=== PATIENT | female | born 1940 | race Caucasian/White ===

== ENCOUNTER → 2017-12-24 | Outpatient (CLI) | payer OTHER ==
[~2017-12-24] MED LIST: ACET325 PO; ASPI81CH PO; ATOR10 PO; ATOR20 PO; Aspir 8181 MG PO; BREO ELLIPTA 11 EACH IH; CALCA500CH PO; CARV6.25 PO; CATALYN; CEPH500 PO; CHOL10002 PO; CIPRO500 MG PO; CITA20 PO; CLOP75 PO; CRANBERRY 6,001 EACH PO; CYCL10 PO; DOCU100 PO; DULO60 PO; FLUO20 PO; FLUSAL1005 INH; FLUSAL2505 INH; FURO20 PO; GABA300 PO; GABA600 PO; HYDACE5 PO; HYDACE7.5 PO; IBUP600 PO; Isosorbide Mono30 MG PO; LEVFLO500 PO; LOSA25 PO; Lisinopril2.5 MG PO; Lopressor 25 mg25 MG PO; METO25ER PO; MILN100T PO; MULVITMIND PO; NAPR500 PO; NITR.4SL SL; Nitrostat0.4 MG SL; OMEP40CA12 PO; PANT40 PO; POTA10T PO; PRAV20 PO; PRED5 PO; RABE20 PO; ROSU5 PO; RXCYCL10 PO; SIMV10 PO; SPIR25 PO; SULTRIDS PO; Senna8.6 MG PO; TIOT18 INH; TRIHYD253A PO; TRIHYD253B PO
[2017-12-24 19:35] LABS: Appearance, Urine Clear (Clear); Bilirubin, Urine Neg (Neg); Blood, Urine 2+ (Neg); Color, Urine Yellow (P-Yellow); Glucose Qualitative, Urine Neg (Neg); Ketones, Urine Neg (Neg); Leukocyte Esterase, Urine 3+ (Neg); Nitrite, Urine Neg (Neg); Protein, Urine Neg (Neg); Urobilinogen, Urine NORM (Normal)
[2017-12-24 19:43] LABS: Bacteria Few /hpf; Squamous Epithelial Cells Not Seen /hpf (Few); White Blood Cells, Urine TNTC /hpf (0-5)
== END ==
LOC: OLS 10:17
PROVIDERS: Nurse Practitioner
DX: Z09 Encounter for follow-up examination after completed treatment for conditions other than malignant neoplasm (principal); Z87.448 Personal history of other diseases of urinary system
CPT/HCPCS: 81001; 87077; 87086; 87186

== ENCOUNTER 2018-11-09 08:23 | Day surgery (SDC) | payer OTHER ==
[~2018-11-09] VITALS: Ht 162.6 cm; Wt 78.0 kg
[2018-11-09 08:42] LABS: BASOPHILS ABSOLUTE AUTO 0.03 K/mm3 (0.00-0.23); BASOPHILS PERCENT AUTO 1 % (0-2); EOSINOPHILS ABSOLUTE AUTO 0.27 K/mm3 (0.00-0.68); EOSINOPHILS PERCENT AUTO 5 % (0-6); Hematocrit 36.4 % (33.0-51.0); Hemoglobin 12.2 g/dL (11.5-16.0); IMMATURE GRAN PERCENT AUTO 0 % (0-1); LYMPHOCYTES ABSOLUTE AUTO 1.97 K/mm3 (0.84-5.20); LYMPHOCYTES PERCENT AUTO 35 % (21-46); MONOCYTES ABSOLUTE AUTO 0.67 K/mm3 (0.16-1.47); MONOCYTES PERCENT AUTO 12 % (4-13); Mean Corpuscular HGB 32.1 pg (26.0-34.0); Mean Corpuscular HGB Conc 33.5 g/dL (31.5-36.5); Mean Platelet Volume 8.7 fL (9.1-12.4); NEUTROPHILS ABSOLUTE AUTO 2.77 K/mm3 (1.96-9.15); NEUTROPHILS PERCENT AUTO 49 % (41-73); Platelet Count 384 K/mm3 (150-400); RDW Coefficient Variation 12.4 % (11.7-14.2); RDW Standard Deviation 43.3 fL (35.1-46.3); White Blood Cell Count 5.71 K/mm3 (4.00-11.30)
[2018-11-09 08:47] LABS: Mean Corpuscular Volume 96 fL (80-100)
[2018-11-09 08:56] LABS: Bun/Creatinine Ratio 16.9 (12.0-20.0); Calcium, Blood 9.1 mg/dL (8.5-10.1); Creatinine, Blood 1.18 mg/dL (0.40-1.00); International Normalized Ratio 0.97; Potassium, Blood 4.4 mmol/L (3.5-5.5)
== END 2018-11-10 10:58 | disposition home or self-care (01) ==
LOC: MHTC 08:23 → PCU 08:23 → MHTC 08:24 → PCU 14:48 → MHTC 11-10 10:58
PROVIDERS: Internal Medicine Cardiovascular Disease
PROC: 027034Z Dilation of Coronary Artery, One Artery with Drug-eluting Intraluminal Device, Percutaneous Approach (ICD-10-PCS; principal; 2018-11-09)
PROC: B2111ZZ Fluoroscopy of Multiple Coronary Arteries using Low Osmolar Contrast (ICD-10-PCS; principal; 2018-11-09)
DX: I25.10 Atherosclerotic heart disease of native coronary artery without angina pectoris (principal); Z95.1 Presence of aortocoronary bypass graft; E78.5 Hyperlipidemia, unspecified; I25.5 Ischemic cardiomyopathy; I11.0 Hypertensive heart disease with heart failure; I50.9 Heart failure, unspecified
CPT/HCPCS: 36415; 80048; 85025; 85347; 85610; 93452; 99152; 99153; C1725; C1769; C1874; C1887; C1894; C9600; J1644; J2250; J3010; J7030; Q9967

== ENCOUNTER → 2019-01-31 | Outpatient (CLI) | payer OTHER | END | disposition home or self-care (01) | LOC: LAB EV 12:00 → LAB SHORT 12:00 | DX: R35.0 Frequency of micturition (principal) | CPT/HCPCS: 87077; 87086; 87186 ==

== ENCOUNTER 2019-02-11 13:07 | Emergency (ER) | payer OTHER ==
[~2019-02-11] VITALS: Ht 162.6 cm; Wt 80.3 kg
[2019-02-11 13:41] LABS: BASOPHILS ABSOLUTE AUTO 0.08 K/mm3 (0.00-0.23); BASOPHILS PERCENT AUTO 1 % (0-2); EOSINOPHILS ABSOLUTE AUTO 0.53 K/mm3 (0.00-0.68); EOSINOPHILS PERCENT AUTO 5 % (0-6); Hematocrit 37.5 % (33.0-51.0); Hemoglobin 12.6 g/dL (11.5-16.0); IMMATURE GRAN ABSOLUTE AUTO 0.04 K/mm3 (0.00-0.10); IMMATURE GRAN PERCENT AUTO 0 % (0-1); LYMPHOCYTES ABSOLUTE AUTO 3.08 K/mm3 (0.84-5.20); LYMPHOCYTES PERCENT AUTO 28 % (21-46); MONOCYTES ABSOLUTE AUTO 1.22 K/mm3 (0.16-1.47); MONOCYTES PERCENT AUTO 11 % (4-13); Mean Corpuscular HGB 33.2 pg (26.0-34.0); Mean Corpuscular HGB Conc 33.6 g/dL (31.5-36.5); Mean Corpuscular Volume 99 fL (80-100); Mean Platelet Volume 8.8 fL (9.1-12.4); NEUTROPHILS ABSOLUTE AUTO 6.01 K/mm3 (1.96-9.15); NEUTROPHILS PERCENT AUTO 55 % (41-73); Platelet Count 408 K/mm3 (150-400); RDW Coefficient Variation 12.8 % (11.7-14.2); RDW Standard Deviation 46.2 fL (35.1-46.3); White Blood Cell Count 10.96 K/mm3 (4.00-11.30)
[2019-02-11 14:09] LABS: Alanine Aminotransfer (ALT/SGP 27 U/L (12-78); Albumin, Blood 3.8 g/dL (3.4-5.0); Albumin/Globulin Ratio 0.9 (0.8-1.8); Alk Phos 84 U/L (50-136); Anion Gap 9 mmol/L (6-16); Aspartate Aminotrans (AST/SGOT 25 U/L (12-37); Bilirubin, Total 0.4 mg/dL (0.1-1.0); Blood Urea Nitrogen 31 mg/dL (8-24); CO2, Blood 24 mmol/L (21-32); Calcium, Blood 9.4 mg/dL (8.5-10.1); Chloride, Blood 101 mmol/L (98-108); Creatinine, Blood 1.35 mg/dL (0.40-1.00); Globulin, Blood 4.1 g/dL (2.2-4.0); Glomerular Filtration Rate 40 (60-); Glucose, Blood 97 mg/dL (70-99); Potassium, Blood 4.4 mmol/L (3.5-5.5); Sodium, Blood 134 mmol/L (136-145); Total Protein, Blood 7.9 g/dL (6.4-8.2); Troponin I <0.015 ng/mL (0.000-0.040)
[2019-02-11] MEDS ORDERED: PRED20 PO (14:31)
[2019-02-11] MEDS ORDERED: ALBU90OI INH (14:32)
[2019-02-11 14:42] LABS: Influenza A Negative (NEGATIVE); Influenza B Negative (NEGATIVE)
== END 2019-02-11 15:08 | disposition home or self-care (01) ==
LOC: ER 13:07
PROVIDERS: Emergency Medicine
DX: R06.00 Dyspnea, unspecified (principal); Z88.2 Allergy status to sulfonamides; Z88.5 Allergy status to narcotic agent; Z88.8 Allergy status to other drugs, medicaments and biological substances; Z79.899 Other long term (current) drug therapy; Z79.82 Long term (current) use of aspirin; E78.00 Pure hypercholesterolemia, unspecified; I10 Essential (primary) hypertension; I25.2 Old myocardial infarction
CPT/HCPCS: 71046; 80053; 83880; 84484; 85025; 87804; 93005; 93010; 94640; 96374; 99285-25; J2930

== ENCOUNTER 2019-03-04 02:34 | Inpatient (IN) | payer OTHER ==
[~2019-03-04] VITALS: Ht 162.6 cm; Wt 73.1 kg
[~2019-03-04 02:34] MED LIST changes: +ALBU90OI INH; +PRED20 PO; +Vibramycin100 MG PO
[2019-03-04 03:14] LABS: BASOPHILS ABSOLUTE AUTO 0.08 K/mm3 (0.00-0.23); BASOPHILS PERCENT AUTO 1 % (0-2); EOSINOPHILS ABSOLUTE AUTO 0.73 K/mm3 (0.00-0.68); EOSINOPHILS PERCENT AUTO 9 % (0-6); Hematocrit 37.9 % (33.0-51.0); Hemoglobin 12.3 g/dL (11.5-16.0); IMMATURE GRAN ABSOLUTE AUTO 0.02 K/mm3 (0.00-0.10); IMMATURE GRAN PERCENT AUTO 0 % (0-1); LYMPHOCYTES ABSOLUTE AUTO 3.08 K/mm3 (0.84-5.20); LYMPHOCYTES PERCENT AUTO 36 % (21-46); MONOCYTES ABSOLUTE AUTO 0.98 K/mm3 (0.16-1.47); MONOCYTES PERCENT AUTO 12 % (4-13); Mean Corpuscular HGB 31.9 pg (26.0-34.0); Mean Corpuscular HGB Conc 32.5 g/dL (31.5-36.5); Mean Corpuscular Volume 98 fL (80-100); Mean Platelet Volume 8.5 fL (9.1-12.4); NEUTROPHILS ABSOLUTE AUTO 3.58 K/mm3 (1.96-9.15); NEUTROPHILS PERCENT AUTO 42 % (41-73); Platelet Count 343 K/mm3 (150-400); RDW Coefficient Variation 12.7 % (11.7-14.2); RDW Standard Deviation 45.8 fL (35.1-46.3); Red Blood Cell Count 3.85 M/mm3 (3.80-5.20); White Blood Cell Count 8.47 K/mm3 (4.00-11.30)
[2019-03-04 03:35] LABS: Albumin, Blood 3.2 g/dL (3.4-5.0); Albumin/Globulin Ratio 0.8 (0.8-1.8); Bilirubin, Total 0.4 mg/dL (0.1-1.0); Bun/Creatinine Ratio 23.9 (12.0-20.0); Creatinine, Blood 1.13 mg/dL (0.40-1.00); Globulin, Blood 4.1 g/dL (2.2-4.0); Total Protein, Blood 7.3 g/dL (6.4-8.2); Troponin I 0.017 ng/mL (0.000-0.040)
[2019-03-04 04:35] LABS: PCO2 Arterial 35.3 mmHg (35-45); PO2 Arterial 91.9 mmHg (80-100); pH Blood Arterial 7.38 (7.35-7.45)
--- NOTE | 2019-03-04 10:38 | NUR ---
REPORT FROM LEVI METCALF RN. ROOM SET UP.
--- NOTE | 2019-03-04 11:20 | NUR ---
PT TO ROOM 338 FROM ER VIA STRETCHER. PT ALERT AND ORIENTED. STANDS TO GET INTO BED WITH MINIMAL ASSISTANCE. HYDROGEN POWER PLANT ENGINEER AT BEDSIDE FOR VS. PT ON 2L O2 PER NC.
--- NOTE | 2019-03-04 12:12 | NUR ---
PT PROVIDED LUNCH TRAY. SITTING UP IN BED.
--- NOTE | 2019-03-04 12:59 | NUR ---
PT TRAY CLEARED. DENIES NEEDS. PT WATCHING TV. RESP EVEN AND LESS LABORED. PT STATES SOB BETTER AT THIS TIME.
--- NOTE | 2019-03-04 13:19 | NUR ---
AWAITING DR LASHAY SHAHID AND FURTHER ORDERS.
--- NOTE | 2019-03-04 14:32 | NUR ---
PT RESTING COMFORTABLY. NADN. DENIES PAIN.
--- NOTE | 2019-03-04 15:14 | NUR ---
PT RESTING. NADN. WILL CONT TO MONITOR.
--- NOTE | 2019-03-04 15:35 | NUR ---
VISITORS TO ROOM. PT DENIES NEEDS/PAIN.
--- NOTE | 2019-03-04 16:26 | NUR ---
ADDITIONAL VISITORS TO ROOM. PT TALKING WITH FAMILY.
--- NOTE | 2019-03-04 16:55 | NUR ---
PT AND PT FAMILY UPDATED ON PLAN AND THAT WE ARE WAITING FOR ADMIT ORDERS FROM DR HILLS.
--- NOTE | 2019-03-04 17:15 | NUR ---
DR HILLS AWARE OF PT. AWAITING ORDERS.
--- NOTE | 2019-03-04 17:46 | NUR ---
DINNER TRAY PROVIDED. FILLED ICE WATER AND PROVIDED TEA TO PT. FAMILY AT BEDSIDE.
--- NOTE | 2019-03-04 18:39 | NUR ---
DR HILLS TO ROOM FOR EVAL.
--- NOTE | 2019-03-04 19:00 | NUR ---
REPORT TO KANG GORDILLO.
--- NOTE | 2019-03-05 05:29 | NUR ---
SHIFT SUMMARY PT ALERT/ORIENTED. BECOMES DYSPNEIC WITH EXERTION AND TALKING. USES BSC T/O NIGHT, SLEPT WELL. NO ACUTE EVENTS NOTED DURING THE NIGHT. WILL CONTINUE TO MONITOR.
[2019-03-05 05:45] LABS: BASOPHILS ABSOLUTE AUTO 0.01 K/mm3 (0.00-0.23); BASOPHILS PERCENT AUTO 0 % (0-2); EOSINOPHILS ABSOLUTE AUTO 0.01 K/mm3 (0.00-0.68); EOSINOPHILS PERCENT AUTO 0 % (0-6); Hematocrit 33.3 % (33.0-51.0); Hemoglobin 11.3 g/dL (11.5-16.0); IMMATURE GRAN ABSOLUTE AUTO 0.06 K/mm3 (0.00-0.10); IMMATURE GRAN PERCENT AUTO 1 % (0-1); LYMPHOCYTES ABSOLUTE AUTO 1.22 K/mm3 (0.84-5.20); LYMPHOCYTES PERCENT AUTO 14 % (21-46); MONOCYTES ABSOLUTE AUTO 0.35 K/mm3 (0.16-1.47); MONOCYTES PERCENT AUTO 4 % (4-13); Mean Corpuscular HGB 32.8 pg (26.0-34.0); Mean Corpuscular HGB Conc 33.9 g/dL (31.5-36.5); Mean Corpuscular Volume 97 fL (80-100); Mean Platelet Volume 8.6 fL (9.1-12.4); NEUTROPHILS ABSOLUTE AUTO 7.19 K/mm3 (1.96-9.15); NEUTROPHILS PERCENT AUTO 81 % (41-73); Platelet Count 362 K/mm3 (150-400); RDW Coefficient Variation 12.6 % (11.7-14.2); RDW Standard Deviation 44.8 fL (35.1-46.3); Red Blood Cell Count 3.45 M/mm3 (3.80-5.20); White Blood Cell Count 8.84 K/mm3 (4.00-11.30)
[2019-03-05 06:05] LABS: Bun/Creatinine Ratio 26.2 (12.0-20.0); Calcium, Blood 9.6 mg/dL (8.5-10.1); Creatinine, Blood 1.22 mg/dL (0.40-1.00); Potassium, Blood 4.4 mmol/L (3.5-5.5)
--- NOTE | 2019-03-05 18:25 | NUR ---
SHE JUST HAS NOT FELT WELL TODAY SINCE ABOUT 8 AM. SHE HAS PROFOUND TREMORS MAKING IT HARD FOR HER TO FEED HERSELF OR HOLD ANYTHING. SHE SAID THIS MORNING SHE FELT LIKE SHE WAS GETTING A COLD. SHE HAS AN INTERMITTENT COUGH THAT EXHAUSTS HER. CXR DONE THIS AM. TEDS ON. THIS EVENING'S VS SHOW LOWER BP AND HIGHER PULSE. SHE RECEIVED TYLENOL FOR A PAIN UNDER HER L BREAST GRADED A 2. NO NAUSEA. NO DIZZINESS. NO SWEATS. SHE CONTINUES TO BE SOB WITH EXERTION BUT SAYS THAT IS DEFINITELY BETTER THAN WHEN SHE CAME IN. SOLUMEDROL FREQUENCY WAS LESSENED TODAY.
--- NOTE | 2019-03-06 04:54 | NUR ---
SHIFT SUMMARY PT SLEPT FAIR, HAS HAD A HARSH SOUNDING NON-PRODUCTIVE COUGH THAT HAS KEPT HER UP SOME OF THE NIGHT. WILL ADDRESS THIS IN AM. PT ALSO MEDICATED WITH TYLENOL FOR LEFT SIDED UPPER RIB PAIN DUE TO COUGH. NO ACUTE EVENTS NOTED DURING THE NIGHT, WILL CONTINUE TO MONITOR.
[2019-03-06 11:45] LABS: Bun/Creatinine Ratio 26.2 (12.0-20.0); Calcium, Blood 9.5 mg/dL (8.5-10.1); Creatinine, Blood 1.3 mg/dL (0.40-1.00); Potassium, Blood 4.1 mmol/L (3.5-5.5)
--- NOTE | 2019-03-06 16:12 | NUR ---
PATIENT CONTINUES TO HAVE TREMORS, BUT STATES THEY ARE IMPROVING. MAINTAINING SATS ON 1LO2 VIA NC, RT TX SCHEDULED. CONTINUES TO HAVE A HARSH NONPRODUCTIVE COUGH. SBA TO CHAIR DUE TO TREMORS. TOLERATING REGULAR DIET. DENIES ANY PAIN THIS SHIFT. CALM AND COOPERATIVE WITH CARE, CALLS APPROPRIATELY FOR ASSISTANCE.
--- NOTE | 2019-03-07 05:22 | NUR ---
SHIFT SUMMARY PT SLEPT WELL DURING THE NIGHT, COUGH MUCH LESS. NO ACUTE EVENTS NOTED DURING THE NIGHT, WILL CONTINUE TO MONITOR.
[2019-03-07 11:06] LABS: Calcium, Blood 9.6 mg/dL (8.5-10.1); Creatinine, Blood 1.41 mg/dL (0.40-1.00)
--- NOTE | 2019-03-07 17:45 | NUR ---
PT AOX4 AND COOPERATIVE OF CARE. PT IS A ONE PERSON ASSIST TO COMODE. PT GETS VERY SOB MOVING. CALLS APPROPRIATELY. BREATHING TREATMENTS SEEM EFFECTIVE. WILL CONTINUE TO MONTITOR.
--- NOTE | 2019-03-08 04:12 | NUR ---
SHIFT SUMMARY A/O, ABLE TO MAKE NEEDS KNOWN. COOPERATIVE WITH CARE. CALLS AND ANSWERS QUESTIONS APPROPRIATELY. NO C/O PAIN/DISCOMFORT. BECOMES DYSPNEIC UPON EXERTION; REMAINS ON 2L VIA NC. O2 SATURATION >90%; RESPIRATIONS EVEN WITH EQUAL RISE/FALL. APPEARED TO REST WELL T/O SHIFT. NO ACUTE CHANGES NOTED OVERNIGHT. BED IN LOWEST POSITION. CALL LIGHT AND BELONGINGS WITHIN REACH. WCTM. REPORT TO ONCOMING RN.
[2019-03-08 05:35] LABS: BASOPHILS ABSOLUTE AUTO 0.02 K/mm3 (0.00-0.23); BASOPHILS PERCENT AUTO 0 % (0-2); EOSINOPHILS PERCENT AUTO 0 % (0-6); Hematocrit 36.3 % (33.0-51.0); Hemoglobin 11.9 g/dL (11.5-16.0); IMMATURE GRAN PERCENT AUTO 1 % (0-1); LYMPHOCYTES ABSOLUTE AUTO 2.02 K/mm3 (0.84-5.20); LYMPHOCYTES PERCENT AUTO 20 % (21-46); MONOCYTES ABSOLUTE AUTO 1.09 K/mm3 (0.16-1.47); MONOCYTES PERCENT AUTO 11 % (4-13); Mean Corpuscular HGB 32.2 pg (26.0-34.0); Mean Corpuscular HGB Conc 32.8 g/dL (31.5-36.5); Mean Corpuscular Volume 98 fL (80-100); Mean Platelet Volume 8.7 fL (9.1-12.4); NEUTROPHILS ABSOLUTE AUTO 6.82 K/mm3 (1.96-9.15); NEUTROPHILS PERCENT AUTO 68 % (41-73); Platelet Count 442 K/mm3 (150-400); RDW Coefficient Variation 12.9 % (11.7-14.2); RDW Standard Deviation 46.2 fL (35.1-46.3); White Blood Cell Count 10.05 K/mm3 (4.00-11.30)
[2019-03-08 05:52] LABS: Albumin, Blood 3.3 g/dL (3.4-5.0); Albumin/Globulin Ratio 0.9 (0.8-1.8); Bilirubin, Total 0.4 mg/dL (0.1-1.0); Calcium, Blood 9.5 mg/dL (8.5-10.1); Creatinine, Blood 1.28 mg/dL (0.40-1.00); Globulin, Blood 3.8 g/dL (2.2-4.0); Magnesium, Blood 2.6 mg/dL (1.6-2.4); Phosphorus, Blood 4.4 mg/dL (2.5-4.9); Potassium, Blood 4.2 mmol/L (3.5-5.5); Total Protein, Blood 7.1 g/dL (6.4-8.2)
[2019-03-08 06:07] LABS: Bun/Creatinine Ratio 23.7 (12.0-20.0); Calcium, Blood 9.6 mg/dL (8.5-10.1); Creatinine, Blood 1.31 mg/dL (0.40-1.00); Potassium, Blood 4.1 mmol/L (3.5-5.5)
[2019-03-08] MEDS ORDERED: ACET325 PO (12:51)
[2019-03-08] MEDS ORDERED: AZIT500 PO (12:57)
[2019-03-08] MEDS ORDERED: METPRE2 PO (12:57)
--- NOTE | 2019-03-08 14:22 | NUR ---
PT DISCHARGED AT 1415. ALL PAPER, MEDICATION AND EDUACTIONAL MATERIAL WHERE REVEIWED. PT AOX4 AND COOPERATIVE OF ALL CARE. PT DOING MUCH BETTER TODAY AND HAVING AN EASIER TIME TALKING WITHOUT GETTING SOB. PT DID WELL WITH PHYSICAL THERAPY TODAY AND WAS 94% ON RA. PT HAS ESCORT TAKE HER DOWN TO CATCH A RIDE WITH RAMANDEEP EARL AT N ENTRANCE VIA WHEEL CHAIR.
== END 2019-03-08 14:15 | disposition home health service (06) | DRG 189 ==
LOC: ER 02:34 → ERHOLD 06:19 → MEDS 06:19
PROVIDERS: Emergency Medicine; Hospitalist; ADMIT Internal Medicine Endocrinology, Diabetes & Metabolism
DX: J96.01 Acute respiratory failure with hypoxia (principal); J44.1 Chronic obstructive pulmonary disease with (acute) exacerbation; I13.0 Hypertensive heart and chronic kidney disease with heart failure and stage 1 through stage 4 chronic kidney disease, or unspecified chronic kidney disease; J44.0 Chronic obstructive pulmonary disease with (acute) lower respiratory infection; N18.3 Chronic kidney disease, stage 3 (moderate); I50.9 Heart failure, unspecified; I25.10 Atherosclerotic heart disease of native coronary artery without angina pectoris; Z95.1 Presence of aortocoronary bypass graft; R91.1 Solitary pulmonary nodule; G25.2 Other specified forms of tremor; J20.9 Acute bronchitis, unspecified; I69.320 Aphasia following cerebral infarction; I25.5 Ischemic cardiomyopathy; Z95.5 Presence of coronary angioplasty implant and graft; I25.2 Old myocardial infarction; K21.9 Gastro-esophageal reflux disease without esophagitis; M79.7 Fibromyalgia
CPT/HCPCS: 36415; 36600; 71046; 80048; 80053; 82803; 83735; 83880; 84100; 84145; 84484; 85025; 93005; 93010; 93306; 94640; 94760; 96374; 97110; 97116; 97162; 97165; 97530; 99285-25; J1650; J2920; J2930; J7509; J7512; J7626

== ENCOUNTER 2019-05-05 09:24 | Day surgery (SDC) | payer OTHER ==
[~2019-05-05 09:24] MED LIST changes: +AZIT500 PO; +METPRE2 PO
--- NOTE | 2019-05-05 13:36 | NUR ---
PATIENT LEFT FOR F/U XRAY FOR SMALL PNUEMO PER ORDERS. IF CLEARED BY RADIOLOGY, STAFF WILL DISCHARGE PT HOME. DISCHARGE INSTRUCTION GIVEN VERBAL/WRITTEN.
== END 2019-05-05 23:24 | disposition home or self-care (01) ==
LOC: CT 09:24
DX: C34.32 Malignant neoplasm of lower lobe, left bronchus or lung (principal)
CPT/HCPCS: 32405; 71045; 77012; 88305

== ENCOUNTER → 2019-07-19 | Outpatient (CLI) | payer OTHER ==
[~2019-07-19] MED LIST changes: +Aspirin EC81 MG PO; +CIPR250 PO; +Cranberry400 MG PO; +METOPROLOL SUCC25 MG PO; +Pravachol40 MG PO; +SENN187 PO; +THERA1 EACH PO
[2019-07-19 15:55] LABS: Bilirubin, Urine Neg (Neg); Blood, Urine 1+ (Neg); Glucose Qualitative, Urine Neg (Neg); Ketones, Urine Neg (Neg); Leukocyte Esterase, Urine 3+ (Neg); Nitrite, Urine Neg (Neg); Protein, Urine Neg (Neg); Urobilinogen, Urine NORM (Normal)
[2019-07-19 16:03] LABS: Appearance, Urine Hazy (Clear); Color, Urine Yellow (P-Yellow)
[2019-07-19 16:04] LABS: Bacteria Mod /hpf; Red Blood Cells, Urine 0-2 /hpf (0-2); Squamous Epithelial Cells Rare /hpf (Few); White Blood Cells, Urine 25-50 /hpf (0-5)
== END | disposition home or self-care (01) ==
LOC: LAB SHORT 15:40 → LAB 15:40
PROVIDERS: Radiology Therapeutic Radiology
DX: R30.0 Dysuria (principal)
CPT/HCPCS: 81001; 87077; 87086; 87186

== ENCOUNTER 2019-07-23 16:18 | Inpatient (IN) | payer OTHER ==
[~2019-07-23] VITALS: Ht 162.6 cm; Wt 81.4 kg
[~2019-07-23 16:18] MED LIST changes: -Aspirin EC81 MG PO; -CIPR250 PO; -Cranberry400 MG PO; -METOPROLOL SUCC25 MG PO; -Pravachol40 MG PO; -SENN187 PO; -THERA1 EACH PO
[2019-07-23 17:01] LABS: BASOPHILS ABSOLUTE AUTO 0.05 K/mm3 (0.00-0.23); BASOPHILS PERCENT AUTO 0 % (0-2); EOSINOPHILS ABSOLUTE AUTO 0.07 K/mm3 (0.00-0.68); EOSINOPHILS PERCENT AUTO 0 % (0-6); Hematocrit 38.3 % (33.0-51.0); Hemoglobin 13.3 g/dL (11.5-16.0); IMMATURE GRAN ABSOLUTE AUTO 0.04 K/mm3 (0.00-0.10); IMMATURE GRAN PERCENT AUTO 0 % (0-1); LYMPHOCYTES ABSOLUTE AUTO 0.72 K/mm3 (0.84-5.20); LYMPHOCYTES PERCENT AUTO 5 % (21-46); MONOCYTES ABSOLUTE AUTO 0.94 K/mm3 (0.16-1.47); MONOCYTES PERCENT AUTO 6 % (4-13); Mean Corpuscular HGB 32.7 pg (26.0-34.0); Mean Corpuscular HGB Conc 34.7 g/dL (31.5-36.5); Mean Corpuscular Volume 94 fL (80-100); Mean Platelet Volume 8.3 fL (9.1-12.4); NEUTROPHILS ABSOLUTE AUTO 13.94 K/mm3 (1.96-9.15); NEUTROPHILS PERCENT AUTO 88 % (41-73); Platelet Count 338 K/mm3 (150-400); RDW Standard Deviation 44.6 fL (35.1-46.3); Red Blood Cell Count 4.07 M/mm3 (3.80-5.20); White Blood Cell Count 15.76 K/mm3 (4.00-11.30)
[2019-07-23] MEDS ORDERED: FURO20 PO (17:15)
[2019-07-23] MEDS ORDERED: POTA10T PO (17:16)
[2019-07-23] MEDS ORDERED: LOSA25 PO (17:17)
[2019-07-23] MEDS ORDERED: Aspirin EC81 MG PO (17:17)
[2019-07-23] MEDS ORDERED: Cranberry400 MG PO (17:17)
[2019-07-23 17:18] LABS: Albumin, Blood 3.4 g/dL (3.4-5.0); Albumin/Globulin Ratio 0.8 (0.8-1.8); Bilirubin, Total 0.9 mg/dL (0.1-1.0); Bun/Creatinine Ratio 13.7 (12.0-20.0); Calcium, Blood 9.2 mg/dL (8.5-10.1); Creatinine, Blood 1.24 mg/dL (0.40-1.00); Globulin, Blood 4.1 g/dL (2.2-4.0); Potassium, Blood 3.7 mmol/L (3.5-5.5); Total Protein, Blood 7.5 g/dL (6.4-8.2)
[2019-07-23] MEDS ORDERED: METOPROLOL SUCC25 MG PO (17:18)
[2019-07-23] MEDS ORDERED: THERA1 EACH PO (17:18)
[2019-07-23] MEDS ORDERED: GABA300 PO (17:19)
[2019-07-23] MEDS ORDERED: CLOP75 PO (17:19)
[2019-07-23] MEDS ORDERED: Pravachol40 MG PO (17:19)
[2019-07-23] MEDS ORDERED: SPIR25 PO (20:34)
--- NOTE | 2019-07-23 22:41 | NUR ---
ASSUMED CARE OF PATIENT AT APPROXIMATELY 2117 FROM RAKESH Luis RN. PATIENT ARRIVED TO UNIT VIA STRETCHER; TRANSFER VIA 2 ASSIST FROM ED TO PCU STRETCHER. PATIENT USES CANE AT BASELINE AT HOME; WEAKNESS. PATIENT ALERT AND ORIENTED X4; ADMISSION COMPLETE. PATIENT DENIES PAIN, NUMBNESS, TINGLING, DIZZINESS AND NAUSEA. IVF STARTED PER ORDER. NSR ON TELE; OXYGEN SATURATION ABOVE 90% ON ROOM AIR. PATIENT URINATES INTO BEDSIDE COMMODE; ATTENDS PLACED. PATIENT CURRENTLY RESTING IN BED; CALL LIGHT IN REACH; BED IN LOWEST POSISTION; BED ALARM ON; WILL CONTINUE TO MONITOR AND ASSESS UNTIL END OF SHIFT.
--- NOTE | 2019-07-24 00:14 | NUR ---
PATIENT WAS RESTING WITH EYES CLOSED WHEN THIS RN ENTERED ROOM FOR MIDNIGHT VS; PATIENT REPORTS SHE WAS HAVING CHEST DISCOMFORT 4/10 THAT DOESNT RADIATE ANYWHERE. PATIENT REPORTS DULL ACHE THAT SHE STATED IT MAY BE INDEGESTION; PATIENT JUST FINISHED A TURKEY SANDWICH AND SALTINES. NO CHANGES ON TELE; VSS. PATIENT REPORTS THAT WANT TO GO TO BACK TO BED. PATIENT WAS LAYING ON HER RIGHT SIDE HOB FLAT; RAISED HOB. PATIENT DID HAVE CP IN ER; DISCUSSED WITH PCU DRUM REEL CUTTER. WILL CONTINUE TO MONITOR AND ASSESS UNTIL END OF SHIFT.
[2019-07-24 03:54] LABS: BASOPHILS ABSOLUTE AUTO 0.04 K/mm3 (0.00-0.23); BASOPHILS PERCENT AUTO 0 % (0-2); EOSINOPHILS PERCENT AUTO 2 % (0-6); Hematocrit 32.8 % (33.0-51.0); Hemoglobin 10.8 g/dL (11.5-16.0); IMMATURE GRAN ABSOLUTE AUTO 0.05 K/mm3 (0.00-0.10); IMMATURE GRAN PERCENT AUTO 0 % (0-1); LYMPHOCYTES ABSOLUTE AUTO 1.16 K/mm3 (0.84-5.20); LYMPHOCYTES PERCENT AUTO 9 % (21-46); MONOCYTES ABSOLUTE AUTO 0.82 K/mm3 (0.16-1.47); MONOCYTES PERCENT AUTO 7 % (4-13); Mean Corpuscular HGB Conc 32.9 g/dL (31.5-36.5); Mean Platelet Volume 8.9 fL (9.1-12.4); NEUTROPHILS ABSOLUTE AUTO 10.09 K/mm3 (1.96-9.15); NEUTROPHILS PERCENT AUTO 81 % (41-73); Platelet Count 271 K/mm3 (150-400); RDW Coefficient Variation 13.3 % (11.7-14.2); RDW Standard Deviation 47.6 fL (35.1-46.3); Red Blood Cell Count 3.37 M/mm3 (3.80-5.20); White Blood Cell Count 12.46 K/mm3 (4.00-11.30)
[2019-07-24 04:05] LABS: Mean Corpuscular Volume 97 fL (80-100)
[2019-07-24 04:29] LABS: Calcium, Blood 8.1 mg/dL (8.5-10.1); Creatinine, Blood 1.14 mg/dL (0.40-1.00); Potassium, Blood 3.4 mmol/L (3.5-5.5)
--- NOTE | 2019-07-24 07:11 | NUR ---
PATIENT SLEPT ABOUT SEVEN HOURS LAST NIGHT. VSS. NO OTHER ACUTE CHANGES TO REPORT.
--- NOTE | 2019-07-24 09:18 | NUR ---
PCU DAYSHIFT ASSUMED CARE OF PT APPROX. 0700. PT A&OX4. ALTHOUGHT ALIGHTLY SLOW TO REPSOND BUT ABLE TO ANSWER ALL QUESTIONS APPROPRIATELY. VITAL SIGNS STABLE, ALTHOUGH PT BLOOD PRESSURE SLIGHTLY LOW. MAP STILL IN 60'S AT THIS TIME. RECHECKED THIS ABOUT AN HOUR LATER AND FOUND BLOOD PRESSURE TO BE LOWER. PMD NOTIFIED OF THIS AND CRECIVED ORDERS FOR A 500ML BOLUS. WILL GIVE AND RECHECK. OTHERWISE PT REPORTS FEELING FAIRLY WELL THIS MORNING JUST SLIGHTLY SLEEPY. PT ABLE TO HAVE BREAKFAST. BED IN LOW POSITION, CALL LIGHT IN REACH AND PT DENIES ANY NEEDS. WILL CONTINUE TO MONITOR.
--- NOTE | 2019-07-24 09:29 | NUR ---
NOTE BOLUS GIVEN PER PMD ORDERS. BLOOD PRESURE RECHECKED AFTER THIS AND NOTED THAT IT HAS INCREASED WILL CONTINUE TO MONITOR THIS.
--- NOTE | 2019-07-24 18:50 | NUR ---
SHIFT SUMMARY PT PLEASANT, COOPERATIVE AND USES CALL LIGHT APPROPRIATELY. PT REMAINS A&OX4. AND REMAINS SLOW TO RESPOND. PT VITAL SIGNS STABLE. BLOOD PRESSURE STABLE THROUGHOUT DAY BUT SLIGHTLY LOW. PT DENIES ANY DIZZINESS OR LIGHTHEADEDNESS. PT WAS ABLE TO SLEEP MOST OF SHIFT. AND EAT AT EACH MEAL. PT ABLE TP AMBULATE TO BEDSIDE COMMODE NEEDED AND TOLERATED WELL. NO S/SX OF ACUTE DISRESS. BED IN LOW POSITION, CALL LIGHT INR EACH AND PT DENIES ANY NEEDS. WILL CONTINUE TO MONITOR UNTIL HANDOFF TO NIGHTSHIFT RN.
--- NOTE | 2019-07-24 21:33 | NUR ---
ASSUMED CARE OF PATIENT AT APPROXIMATELY 1900 FROM SHIRA Rachel RN. PATIENT ALERT AND ORIENTED X4; WEAK; ONE ASSIST OUT OF BED; ATTENDS IN PLACE. PATIENT DENIES PAIN, NUMBNESS, TINGLING, DIZZINESS AND NAUSEA. IVF INFUSING PER ORDER. NSR ON TELE; OXYGEN SATURATION ABOVE 90% ON ROOM AIR. PATIENT CURRENTLY RESTING IN BED; CALL LIGHT IN REACH; BED IN LOWEST POSISTION; BED ALARM ON; WILL CONTINUE TO MONITOR AND ASSESS UNTIL END OF SHIFT.
[2019-07-25 03:24] LABS: BASOPHILS ABSOLUTE AUTO 0.03 K/mm3 (0.00-0.23); BASOPHILS PERCENT AUTO 0 % (0-2); EOSINOPHILS ABSOLUTE AUTO 0.42 K/mm3 (0.00-0.68); EOSINOPHILS PERCENT AUTO 6 % (0-6); Hemoglobin 11.1 g/dL (11.5-16.0); IMMATURE GRAN ABSOLUTE AUTO 0.04 K/mm3 (0.00-0.10); IMMATURE GRAN PERCENT AUTO 1 % (0-1); LYMPHOCYTES PERCENT AUTO 13 % (21-46); MONOCYTES ABSOLUTE AUTO 0.63 K/mm3 (0.16-1.47); MONOCYTES PERCENT AUTO 9 % (4-13); Mean Corpuscular HGB Conc 33.6 g/dL (31.5-36.5); Mean Corpuscular Volume 98 fL (80-100); Mean Platelet Volume 8.4 fL (9.1-12.4); NEUTROPHILS ABSOLUTE AUTO 4.71 K/mm3 (1.96-9.15); NEUTROPHILS PERCENT AUTO 70 % (41-73); Platelet Count 263 K/mm3 (150-400); RDW Coefficient Variation 13.2 % (11.7-14.2); RDW Standard Deviation 47.7 fL (35.1-46.3); Red Blood Cell Count 3.36 M/mm3 (3.80-5.20); White Blood Cell Count 6.73 K/mm3 (4.00-11.30)
[2019-07-25 03:45] LABS: Albumin, Blood 2.4 g/dL (3.4-5.0); Anion Gap 7 mmol/L (6-16); Blood Urea Nitrogen 12 mg/dL (8-24); Bun/Creatinine Ratio 11.4 (12.0-20.0); CO2, Blood 20 mmol/L (21-32); Calcium, Blood 8.4 mg/dL (8.5-10.1); Chloride, Blood 113 mmol/L (98-108); Creatinine, Blood 1.05 mg/dL (0.40-1.00); Glomerular Filtration Rate 53 (60-); Glucose, Blood 84 mg/dL (70-99); Phosphorus, Blood 2.4 mg/dL (2.5-4.9); Potassium, Blood 4.2 mmol/L (3.5-5.5); Sodium, Blood 140 mmol/L (136-145); Troponin I <0.015 ng/mL (0.000-0.040)
--- NOTE | 2019-07-25 05:59 | NUR ---
PATIENT SLEPT ABOUT EIGHT HOURS LAST NIGHT. VSS. NO ACUTE CHANGES TO REPORT. WILL CONTINUE TO MONITOR AND ASSESS UNTIL END OF SHIFT.
--- NOTE | 2019-07-25 18:00 | NUR ---
SHIFT SUMMARY PT ALERT AND ORIENTED. VS STABLE. O2 SATS REMAIN ABOVE 90% ON RA. BP STABLE. PT DENIES ANY PAIN. PT ABLE TO AMBULATE TO BATHROOM NEEDED WITH SBA AND HER CANE. NS KCL INFUSING PER ORDERS. FAMILY AT BEDSIDE. WILL CONTINUE TO MONITOR AND REPORT TO ONCOMING RN. CALL LIGHT IN REACH.
[2019-07-26 03:38] LABS: BASOPHILS ABSOLUTE AUTO 0.04 K/mm3 (0.00-0.23); BASOPHILS PERCENT AUTO 1 % (0-2); EOSINOPHILS ABSOLUTE AUTO 0.34 K/mm3 (0.00-0.68); EOSINOPHILS PERCENT AUTO 7 % (0-6); Hematocrit 33.1 % (33.0-51.0); Hemoglobin 10.9 g/dL (11.5-16.0); IMMATURE GRAN ABSOLUTE AUTO 0.02 K/mm3 (0.00-0.10); IMMATURE GRAN PERCENT AUTO 0 % (0-1); LYMPHOCYTES ABSOLUTE AUTO 1.12 K/mm3 (0.84-5.20); LYMPHOCYTES PERCENT AUTO 22 % (21-46); MONOCYTES ABSOLUTE AUTO 0.67 K/mm3 (0.16-1.47); MONOCYTES PERCENT AUTO 13 % (4-13); Mean Corpuscular HGB 32.2 pg (26.0-34.0); Mean Corpuscular HGB Conc 32.9 g/dL (31.5-36.5); Mean Corpuscular Volume 98 fL (80-100); Mean Platelet Volume 8.6 fL (9.1-12.4); NEUTROPHILS ABSOLUTE AUTO 2.98 K/mm3 (1.96-9.15); NEUTROPHILS PERCENT AUTO 58 % (41-73); Platelet Count 286 K/mm3 (150-400); RDW Coefficient Variation 13.2 % (11.7-14.2); RDW Standard Deviation 47.5 fL (35.1-46.3); Red Blood Cell Count 3.39 M/mm3 (3.80-5.20); White Blood Cell Count 5.17 K/mm3 (4.00-11.30)
[2019-07-26 04:00] LABS: Bun/Creatinine Ratio 10.4 (12.0-20.0); Calcium, Blood 8.6 mg/dL (8.5-10.1); Creatinine, Blood 1.06 mg/dL (0.40-1.00); Potassium, Blood 4.3 mmol/L (3.5-5.5)
--- NOTE | 2019-07-26 04:46 | NUR ---
Shift Summary VSS this shift, pt remains alert and oriented, pt with no complaints of SOB or difficulty breating. Pt is breathing easy and unlabored on RA. Alert and oriented, calls appropriately, uses call light to make needs known. Pt able to ambulate to bathroom with minimal assistance, uses cane from home. Pt denies pain this shift. No changes from initial shift assessment. No events on tele. Pt sleeping throughout this shift. Will continue to monitor and provide care until day RN assumes care.
[2019-07-26] MEDS ORDERED: GABA300 PO (14:04)
[2019-07-26] MEDS ORDERED: SENN187 PO (14:05)
[2019-07-26] MEDS ORDERED: CIPR250 PO (14:06)
--- NOTE | 2019-07-26 14:52 | NUR ---
Patient is lying in bed and alert. Patient openly shares about her pain of family unit complications, of her emotional pain of loss and feelings of uselesness and about her history of medical issues. I provide empathic listening, companionship grief support, pastoral res counselor and prayer. Patient responds well and voices appreciation.
--- NOTE | 2019-07-26 15:33 | NUR ---
DISCHARGE NOTE PT ALERT AND ORIENTED. VS STABLE. PT ABLE TO AMBULATE NEEDED BATHROOM WITH HER HOME CANE. DR. GARNER IN THIS AFTERNOON WITH DC ORDERS. DISCHARGE INSTRUCTIONS PROVIDED. NEHEMIAS CRAMERAITI EXPLAINED PATIENT. PT RETURNING TO [facility] UPON DISCHARGE AND WAS ABLE TO SET UP TRANSPORT HERSELF. ALL QUESTIONS ANSWERED. PT TAKEN OUT BY WHEELCHAIR.
== END 2019-07-26 15:33 | disposition home or self-care (01) | DRG 872 ==
LOC: ER 16:18 → PCU 19:59
PROVIDERS: Family Medicine; Internal Medicine Gastroenterology; Nurse Practitioner Acute Care; Physician Assistant; ADMIT Family Medicine
DX: A41.50 Gram-negative sepsis, unspecified (principal); N39.0 Urinary tract infection, site not specified; C34.92 Malignant neoplasm of unspecified part of left bronchus or lung; N17.9 Acute kidney failure, unspecified; Z79.82 Long term (current) use of aspirin; I25.10 Atherosclerotic heart disease of native coronary artery without angina pectoris; J42 Unspecified chronic bronchitis; I25.5 Ischemic cardiomyopathy; Z95.1 Presence of aortocoronary bypass graft; M19.90 Unspecified osteoarthritis, unspecified site; I95.9 Hypotension, unspecified; N18.3 Chronic kidney disease, stage 3 (moderate); B96.1 Klebsiella pneumoniae [K. pneumoniae] as the cause of diseases classified elsewhere; D63.1 Anemia in chronic kidney disease
CPT/HCPCS: 36415; 71045; 74176; 80048; 80053; 80069; 83605; 83735; 83880; 84484; 85025; 87040; 93005; 93010; 96361; 96365; 97161; 99285-25; J0696; J1650; J1956; J3480; J7030

== ENCOUNTER → 2019-08-26 | Outpatient (CLI) | payer OTHER ==
[~2019-08-26] MED LIST changes: +Aspirin EC81 MG PO; +CIPR250 PO; +Cranberry400 MG PO; +METOPROLOL SUCC25 MG PO; +Pravachol40 MG PO; +SENN187 PO; +THERA1 EACH PO
== END ==
LOC: LAB 11:16 → LAB SHORT 11:16
DX: Z48.817 Encounter for surgical aftercare following surgery on the skin and subcutaneous tissue (principal); Z48.02 Encounter for removal of sutures; L08.9 Local infection of the skin and subcutaneous tissue, unspecified
CPT/HCPCS: 87070; 87077; 87186; 87205

== ENCOUNTER → 2019-10-05 | Outpatient (CLI) | payer OTHER | END | disposition home or self-care (01) | LOC: LAB SHORT 10:20 → LAB EV 10:20 | DX: R30.9 Painful micturition, unspecified (principal) | CPT/HCPCS: 87077; 87086; 87186 ==

== ENCOUNTER → 2019-10-15 | Outpatient (CLI) | payer OTHER ==
[2019-10-15 23:12] LABS: Adenovirus F 40/41 Not Detected (NOT DETECT); Astrovirus Not Detected (NOT DETECT); Campylobacter Sp Not Detected (NOT DETECT); Cryptosporidium Not Detected (NOT DETECT); Cyclospora Cayetanensis Not Detected (NOT DETECT); E. Coli O157 Not Detected (NOT DETECT); Entamoeba Histolytica Not Detected (NOT DETECT); Enteroaggregative E. coli-EAEC Not Detected (NOT DETECT); Enteropathogenic E. coli-EPEC Detected (NOT DETECT); Enterotoxigenic E. coli-ETEC Not Detected (NOT DETECT); Giardia Lamblia Not Detected (NOT DETECT); Norovirus GI/GII Not Detected (NOT DETECT); Plesiomonas Shigelloides Not Detected (NOT DETECT); Rotavirus A Not Detected (NOT DETECT); Salmonella Sp Not Detected (NOT DETECT); Sapovirus Not Detected (NOT DETECT); Shiga Toxin-prod E. coli-STEC Not Detected (NOT DETECT); Shigella/Enteroin E. coli-EIEC Not Detected (NOT DETECT); Vibrio Cholerae Not Detected (NOT DETECT); Vibrio Sp Not Detected (NOT DETECT); Yersinia Enterocolitica Not Detected (NOT DETECT)
== END | disposition home or self-care (01) ==
LOC: LAB EV 15:39 → LAB SHORT 15:39
PROVIDERS: Physician Assistant Medical
DX: R11.2 Nausea with vomiting, unspecified (principal); R19.7 Diarrhea, unspecified
CPT/HCPCS: 0097U

== ENCOUNTER → 2019-11-03 | Outpatient (CLI) | payer OTHER | END | disposition home or self-care (01) | LOC: LAB EV 09:50 → LAB SHORT 09:50 | DX: R30.0 Dysuria (principal) | CPT/HCPCS: 87077; 87086; 87186 ==

== ENCOUNTER 2020-01-04 23:59 | Inpatient (IN) | payer OTHER ==
[~2020-01-04] VITALS: Ht 162.6 cm; Wt 73.5 kg
[2020-01-05 00:24] LABS: BASOPHILS PERCENT AUTO 1 % (0-2); EOSINOPHILS ABSOLUTE AUTO 0.74 K/mm3 (0.00-0.68); EOSINOPHILS PERCENT AUTO 9 % (0-6); Hemoglobin 12.9 g/dL (11.5-16.0); IMMATURE GRAN ABSOLUTE AUTO 0.09 K/mm3 (0.00-0.10); IMMATURE GRAN PERCENT AUTO 1 % (0-1); LYMPHOCYTES ABSOLUTE AUTO 2.39 K/mm3 (0.84-5.20); LYMPHOCYTES PERCENT AUTO 29 % (21-46); MONOCYTES ABSOLUTE AUTO 1.06 K/mm3 (0.16-1.47); MONOCYTES PERCENT AUTO 13 % (4-13); Mean Corpuscular HGB 31.5 pg (26.0-34.0); Mean Corpuscular HGB Conc 33.1 g/dL (31.5-36.5); Mean Corpuscular Volume 95 fL (80-100); NEUTROPHILS ABSOLUTE AUTO 3.97 K/mm3 (1.96-9.15); NEUTROPHILS PERCENT AUTO 48 % (41-73); Platelet Count 603 K/mm3 (150-400); RDW Standard Deviation 45.4 fL (35.1-46.3); White Blood Cell Count 8.35 K/mm3 (4.00-11.30)
[2020-01-05 00:42] LABS: Anion Gap 8 mmol/L (6-16); Blood Urea Nitrogen 18 mg/dL (8-24); Bun/Creatinine Ratio 16.7 (12.0-20.0); CO2, Blood 23 mmol/L (21-32); Calcium, Blood 9.5 mg/dL (8.5-10.1); Chloride, Blood 100 mmol/L (98-108); Creatinine, Blood 1.08 mg/dL (0.40-1.00); Glomerular Filtration Rate 52 (60-); Glucose, Blood 113 mg/dL (70-99); Potassium, Blood 4.1 mmol/L (3.5-5.5); Sodium, Blood 131 mmol/L (136-145); Troponin I <0.015 ng/mL (0.000-0.040)
--- NOTE | 2020-01-05 06:10 | NUR ---
SHIFT SUMMARY PT ARRIVED TO FLOOR IN NO DISTRESS. PT DOES BECOME SOB WITH MINIMAL EXERTION. NC @ 2 LPM WAS PLACED ON PT. PT HAD A HARSH HACKING COUGH WITH LITTLE PRODUCTION. PT DEVELOPED A ANDERSON DUE TO COUGHING AND GIVEN TYLENOL WITH RELIEF. PT CURRENTLY SLEEPING IN NO DISTRESS. CALL LIGHT IN REACH
--- NOTE | 2020-01-05 16:48 | NUR ---
SHIFT SUMMARY PATIENT REQUIRING 2L NC. ATTEMPTED TO WEAN PATIENT OFF 02, O2 THEN DECREASED INTO 80'S. PLACED BACK ON 2L, SUSTAINING >90%. 1 PERSON ASSIST TO BSC. COUGHING AND DYSPENIC WITH TRANSFERS.
[2020-01-05 18:58] LABS: Source, Urine Clean Catch
[2020-01-05 19:04] LABS: Bilirubin, Urine Neg (Neg); Blood, Urine 1+ (Neg); Glucose Qualitative, Urine Neg (Neg); Ketones, Urine Neg (Neg); Leukocyte Esterase, Urine 1+ (Neg); Nitrite, Urine Neg (Neg); Protein, Urine Neg (Neg); Urobilinogen, Urine NORM (Normal)
[2020-01-05 19:17] LABS: Appearance, Urine Clear (Clear); Color, Urine Pale Yellow (P-Yellow)
[2020-01-05 19:19] LABS: Bacteria Rare /hpf; Red Blood Cells, Urine 0-2 /hpf (0-2); Squamous Epithelial Cells Few /hpf (Few)
[2020-01-05 21:27] LABS: Source, Urine Clean Catch
[2020-01-05 21:36] LABS: Bilirubin, Urine Neg (Neg); Blood, Urine 1+ (Neg); Glucose Qualitative, Urine Neg (Neg); Ketones, Urine Neg (Neg); Leukocyte Esterase, Urine 2+ (Neg); Nitrite, Urine Neg (Neg); Protein, Urine Neg (Neg); Urobilinogen, Urine NORM (Normal)
[2020-01-05 21:38] LABS: Appearance, Urine Clear (Clear); Color, Urine Yellow (P-Yellow)
[2020-01-05 21:39] LABS: Bacteria Few /hpf; Red Blood Cells, Urine 0-2 /hpf (0-2); Squamous Epithelial Cells Few /hpf (Few)
--- NOTE | 2020-01-06 04:47 | NUR ---
SHIFT SUMMARY NO ISSUES NOTED. PT COUGH HAS IMPROVED THIS SHIFT. PT HAS SLEPT SINCE HER FAMILY LEFT. PT CONTINUES TO GET SOB WITH EXERTION. PT HAS SLEPT WITH O2 T/O SHIFT. PT CURRENTLY SLEEPING IN NO DISTRESS. CALL LIGHT IN REACH.
--- NOTE | 2020-01-06 17:02 | NUR ---
SHIFT SUMMARY PT AWAKE AT START OF SHIFT, RESTING QUIETLY. UP TO BSC TO VOID WITH 1P SBA. PT LATER UP TO CHAIR FOR MEALS. DR SARAIBA IN TO SEE PT THIS AM. PT COUGHING; RIVER TESTER DRY COUGH. ROBITUSSIN GIVEN PER EMAR. PT REPORTED "IT HELPS". FAMILY TO RM TO VISIT. UPPER EXTREMITY TREMORS, PT REPORTS POSSIBLY FROM STEROIDS. NO FURTHER C/O. CALL LT IN REACH. ABLE TO MAKE NEEDS KNOWN.
--- NOTE | 2020-01-07 05:13 | NUR ---
SHIFT SUMMARY PT HAS HAD NO ACUTE CHANGES THIS SHIFT, MEDICATED 1X FOR COUGH AT BEDTIME, NO OTHER C/O ANY KIND. PT HAS BEEN ST BY ASSIST TO BR & INDEP W/SELF CARE, PT BEDRESTING AT THIS TIME W/CALL LIGHT IN REACH, WILL CONT TO MONITOR UNTIL REPORT GIVEN TO DAY RN.
[2020-01-07 05:42] LABS: BASOPHILS ABSOLUTE AUTO 0.01 K/mm3 (0.00-0.23); BASOPHILS PERCENT AUTO 0 % (0-2); EOSINOPHILS PERCENT AUTO 0 % (0-6); Hematocrit 35.4 % (33.0-51.0); Hemoglobin 12.3 g/dL (11.5-16.0); IMMATURE GRAN ABSOLUTE AUTO 0.09 K/mm3 (0.00-0.10); IMMATURE GRAN PERCENT AUTO 1 % (0-1); LYMPHOCYTES ABSOLUTE AUTO 1.58 K/mm3 (0.84-5.20); LYMPHOCYTES PERCENT AUTO 17 % (21-46); MONOCYTES ABSOLUTE AUTO 0.55 K/mm3 (0.16-1.47); MONOCYTES PERCENT AUTO 6 % (4-13); Mean Corpuscular HGB 32.1 pg (26.0-34.0); Mean Corpuscular HGB Conc 34.7 g/dL (31.5-36.5); Mean Platelet Volume 8.1 fL (9.1-12.4); NEUTROPHILS PERCENT AUTO 76 % (41-73); Platelet Count 581 K/mm3 (150-400); RDW Coefficient Variation 13.2 % (11.7-14.2); RDW Standard Deviation 44.3 fL (35.1-46.3); Red Blood Cell Count 3.83 M/mm3 (3.80-5.20); White Blood Cell Count 9.43 K/mm3 (4.00-11.30)
[2020-01-07 05:43] LABS: Mean Corpuscular Volume 92 fL (80-100)
[2020-01-07 06:05] LABS: Bun/Creatinine Ratio 27.8 (12.0-20.0); Calcium, Blood 9.6 mg/dL (8.5-10.1); Creatinine, Blood 1.08 mg/dL (0.40-1.00); Potassium, Blood 4.3 mmol/L (3.5-5.5)
--- NOTE | 2020-01-07 18:23 | NUR ---
SHE IS RESTING IN BED AFTER DINNER. HER MAIN COMPLAINT IE COUGH AND WEAKNESS. SHE RECEIVED COUGH SYRUP X2 TODAY. IT WAS EFFECTIVE EACH TIME FOR AWHILE. SHE AMBULATES WITH WALKER AND SBA. SHE HAD TO SIT IN A CHAIR IN THE [place] FOR A REST WHILE WALKING WITH PT TODAY. NA LEVEL 126. FREE WATER RESTRICTION ORDER RECEIVED. SHE UNDERSTANDS. SHE HAS A LARGE ICE TEA AT THE BEDSIDE BROUGHT IN BY HER DAUGHTER BUT SHE SAYS IT WILL LAST HER UNTIL TOMORROW. SPUTUM SENT TO THE LAB THIS AM. NO OTHER CHANGES.
--- NOTE | 2020-01-08 05:17 | NUR ---
SHIFT SUMMARY PT HAS HAD NO ACUTE CHANGES THIS SHIFT, NO COMPLAINTS OF ANY KIND. PT STATED SHE WAS "MORE TIRED TODAY", FELL ASLEEP EARLY AND SLEPT T/O THE NIGHT. PT SLEEPING AT THIS TIME, CALL LIGHT IN REACH, WILL CONT TO MONITOR UNTIL REPORT GIVEN TO DAY RN.
[2020-01-08 06:23] LABS: Calcium, Blood 9.6 mg/dL (8.5-10.1); Creatinine, Blood 1.15 mg/dL (0.40-1.00); Potassium, Blood 4.1 mmol/L (3.5-5.5)
--- NOTE | 2020-01-08 17:10 | NUR ---
SHE WAS DISAPPOINTED THIS AM THAT SHE WAS UNABLE TO BE DISCHARGED HOME. SHE IS STILL WEAK THOUGH AND HAS A COUGH THAT TAKES HER BREATH AWAY. WE HAVE HER ON A FREE WATER RESTRICTION, AND SALT TABLETS HAVE BEEN STARTED FOR HER HYPONATREMIA. UP TO BATHROOM WITH SBA. EATS WELL. HAD A BM TODAY.
--- NOTE | 2020-01-09 04:36 | NUR ---
SHIFT SUMMARY PT HAS HAD NO ACUTE CHANGES THIS SHIFT, MEDICATED AT HS FOR COUGH AND PT SLEPT T/O THE NIGHT, PT SLEEPING AT THIS TIME, CALL LIGHT IN REACH, WILL CONT TO MONITOR UNTIL REPORT GIVEN TO DAY RN.
[2020-01-09 05:38] LABS: Bun/Creatinine Ratio 27.5 (12.0-20.0); Calcium, Blood 9.1 mg/dL (8.5-10.1); Creatinine, Blood 1.02 mg/dL (0.40-1.00); Potassium, Blood 3.7 mmol/L (3.5-5.5)
--- NOTE | 2020-01-09 17:50 | NUR ---
SHIFT SUMMARY. A&OX4, INDEPENDENT IN ROOM WITH FWW. PT DENIES PAIN, SOB, N/V. PT CONTINUES WITH MOIST PRODUCTIVE COUGH, MANAGED WITH PRN ROBITUSSIN. PT DENIES PAIN, SOB. PT REPORTS THAT SHE IS FEELING OVERAL BETTER. NO NEW CHANGES OR CONCERNS.
[2020-01-10 05:39] LABS: BASOPHILS ABSOLUTE AUTO 0.02 K/mm3 (0.00-0.23); BASOPHILS PERCENT AUTO 0 % (0-2); EOSINOPHILS ABSOLUTE AUTO 0.12 K/mm3 (0.00-0.68); EOSINOPHILS PERCENT AUTO 1 % (0-6); Hematocrit 35.8 % (33.0-51.0); Hemoglobin 11.7 g/dL (11.5-16.0); IMMATURE GRAN ABSOLUTE AUTO 0.09 K/mm3 (0.00-0.10); IMMATURE GRAN PERCENT AUTO 1 % (0-1); LYMPHOCYTES PERCENT AUTO 31 % (21-46); MONOCYTES ABSOLUTE AUTO 1.28 K/mm3 (0.16-1.47); MONOCYTES PERCENT AUTO 15 % (4-13); Mean Corpuscular HGB 31.1 pg (26.0-34.0); Mean Corpuscular HGB Conc 32.7 g/dL (31.5-36.5); Mean Platelet Volume 8.2 fL (9.1-12.4); NEUTROPHILS PERCENT AUTO 52 % (41-73); Platelet Count 501 K/mm3 (150-400); RDW Coefficient Variation 13.5 % (11.7-14.2); RDW Standard Deviation 47.4 fL (35.1-46.3); Red Blood Cell Count 3.76 M/mm3 (3.80-5.20); White Blood Cell Count 8.81 K/mm3 (4.00-11.30)
[2020-01-10 05:46] LABS: Mean Corpuscular Volume 95 fL (80-100)
[2020-01-10 06:12] LABS: Albumin, Blood 2.4 g/dL (3.4-5.0); Albumin/Globulin Ratio 0.6 (0.8-1.8); Bilirubin, Total 0.3 mg/dL (0.1-1.0); Calcium, Blood 8.8 mg/dL (8.5-10.1); Globulin, Blood 3.8 g/dL (2.2-4.0); Magnesium, Blood 2.5 mg/dL (1.6-2.4); Phosphorus, Blood 2.9 mg/dL (2.5-4.9); Potassium, Blood 4.1 mmol/L (3.5-5.5); Total Protein, Blood 6.2 g/dL (6.4-8.2)
--- NOTE | 2020-01-10 07:14 | NUR ---
SHIFT SUMMARY A/O, ABLE TO MAKE NEEDS KNOWN. COOPERATIVE WITH CARE. CALLS AND ANSWERS QUESTIONS APPROPRIATELY. NO C/O PAIN/DISCOMFORT. CONTINUES WITH DRY HARSH COUGH; MEDICATED PER EMAR AND PATIENT REQUEST. NO ACUTE CHANGES NOTED OVERNIGHT. APPEARED TO REST. VSS/AFEBRILE. ANXIOUS TO DISCHARGE. 1P ASSIST /c FWW TO BATHROOM. BED IN LOWEST POSITION. CALL LIGHT AND BELONGINGS WITHIN REACH. CONTINUED TO MONITOR T/O SHIFT. REPORT TO ONCOMING RN.
[2020-01-10] MEDS ORDERED: ROBITUSSIN NIG237 ML PO (13:29)
[2020-01-10] MEDS ORDERED: Prednisone10 MG (13:33)
[2020-01-10] MEDS ORDERED: Florastor250 MG PO (13:35)
[2020-01-10] MEDS ORDERED: CEFP200 PO (13:35)
[2020-01-10] MEDS ORDERED: ALBU90OI6 INH (13:39)
[2020-01-10] MEDS ORDERED: FLUT1DIS5 INH (13:40)
--- NOTE | 2020-01-10 14:49 | NUR ---
4806 PT DISCHARGED HOME VIA [employer] [facility]SPORT. PT ESCORTED TO ENTRANCE VIA W/C BY VOLUNTEER. IV REMOVED. D/C PAPERWORK REVIEWED WITH PT AND COPY PROVIDED, PT ACKNOWLEDGED UNDERSTANDING. NO NEW CHANGES OR CONCERNS.
== END 2020-01-10 14:33 | disposition home health service (06) | DRG 190 ==
LOC: ER 23:59 → MEDS 01-05 02:41
PROVIDERS: Hospitalist; Internal Medicine; Physician Assistant; ADMIT Hospitalist
DX: J44.1 Chronic obstructive pulmonary disease with (acute) exacerbation (principal); J18.9 Pneumonia, unspecified organism; E87.1 Hypo-osmolality and hyponatremia; C34.92 Malignant neoplasm of unspecified part of left bronchus or lung; I25.2 Old myocardial infarction; E78.00 Pure hypercholesterolemia, unspecified; Z79.82 Long term (current) use of aspirin; R53.82 Chronic fatigue, unspecified; Z95.1 Presence of aortocoronary bypass graft; G25.0 Essential tremor; D47.3 Essential (hemorrhagic) thrombocythemia; N18.3 Chronic kidney disease, stage 3 (moderate); I95.9 Hypotension, unspecified; Z92.3 Personal history of irradiation; J20.9 Acute bronchitis, unspecified; I12.9 Hypertensive chronic kidney disease with stage 1 through stage 4 chronic kidney disease, or unspecified chronic kidney disease
CPT/HCPCS: 36415; 71045; 80048; 80053; 81001; 82533; 83735; 83880; 83930; 83935; 84100; 84145; 84300; 84484; 85025; 87070; 87077; 87086; 87186; 87205; 93005; 93010; 94640; 94664; 94667; 94668; 94760; 96365; 97110; 97116; 97162; 97165; 97530; 97535; 98960; 99285-25; A9270; A9270-GY; J0456; J0696; J1650; J1940; J2930; J7050; J7512

== ENCOUNTER → 2020-02-16 | Outpatient (CLI) | payer OTHER ==
[~2020-02-16] MED LIST changes: +ALBU90OI6 INH; +CEFP200 PO; +FLUT1DIS5 INH; +Florastor250 MG PO; +Prednisone10 MG; +ROBITUSSIN NIG237 ML PO
== END | disposition home or self-care (01) ==
LOC: LAB SHORT 14:00 → LAB EV 14:00
DX: R30.9 Painful micturition, unspecified (principal)
CPT/HCPCS: 87077; 87086; 87186

== ENCOUNTER → 2020-03-02 | Outpatient (CLI) | payer OTHER | END | disposition home or self-care (01) | LOC: LAB SHORT 11:37 → OLS 11:37 | DX: R30.9 Painful micturition, unspecified (principal) | CPT/HCPCS: 87086 ==

== ENCOUNTER → 2021-01-16 | Outpatient (CLI) | payer OTHER | END | disposition home or self-care (01) | LOC: LAB EV 11:13 → LAB SHORT 11:13 | DX: R35.0 Frequency of micturition (principal) | CPT/HCPCS: 87086 ==

== ENCOUNTER → 2021-04-30 | Outpatient (CLI) | payer OTHER | END | disposition home or self-care (01) | LOC: LAB EV 16:17 → LAB SHORT 16:17 | DX: R35.0 Frequency of micturition (principal) | CPT/HCPCS: 87077; 87086; 87186 ==

== ENCOUNTER → 2021-11-11 | Outpatient (CLI) | payer OTHER | END | disposition home or self-care (01) | LOC: LAB SHORT 17:58 | DX: N39.0 Urinary tract infection, site not specified (principal) | CPT/HCPCS: 87086 ==

== ENCOUNTER → 2022-01-13 | Outpatient (CLI) | payer OTHER | END | disposition home or self-care (01) | LOC: PLD 11:14 → LAB SHORT 11:14 | DX: D49.89 Neoplasm of unspecified behavior of other specified sites (principal) | CPT/HCPCS: 88173 ==

== ENCOUNTER 2022-01-18 08:35 | Emergency (ER) | payer OTHER ==
[~2022-01-18] VITALS: Ht 162.6 cm; Wt 72.6 kg
[2022-01-18] MEDS ORDERED: MERIBIN5 MG PO (08:51)
[2022-01-18] MEDS ORDERED: Prozac20 MG PO (08:51)
[2022-01-18] MEDS ORDERED: B-12500 MC2 PO (08:51)
[2022-01-18] MEDS ORDERED: HYDR1TAB94 PO ×2 (12:11→13:41)
== END 2022-01-18 14:05 | disposition home or self-care (01) ==
LOC: ER 08:35
DX: S82.091A Other fracture of right patella, initial encounter for closed fracture (principal); I12.9 Hypertensive chronic kidney disease with stage 1 through stage 4 chronic kidney disease, or unspecified chronic kidney disease; N18.9 Chronic kidney disease, unspecified; I25.2 Old myocardial infarction; Z85.118 Personal history of other malignant neoplasm of bronchus and lung; Z86.73 Personal history of transient ischemic attack (TIA), and cerebral infarction without residual deficits; Z79.82 Long term (current) use of aspirin; Z79.899 Other long term (current) drug therapy; Z88.2 Allergy status to sulfonamides; Z88.5 Allergy status to narcotic agent; Z88.8 Allergy status to other drugs, medicaments and biological substances; W18.40XA Slipping, tripping and stumbling without falling, unspecified, initial encounter
CPT/HCPCS: 73562-RT; 73700

== ENCOUNTER → 2022-02-19 | Outpatient (CLI) | payer OTHER ==
[~2022-02-19] MED LIST changes: +B-12500 MC2 PO; +HYDR1TAB94 PO; +MERIBIN5 MG PO; +Prozac20 MG PO
[2022-02-19 16:47] LABS: Source, Urine Voided
[2022-02-19 17:33] LABS: Appearance, Urine Clear (Clear); Bilirubin, Urine Neg (Neg); Blood, Urine 1+ (Neg); Color, Urine Yellow (P-Yellow); Glucose Qualitative, Urine Neg (Neg); Ketones, Urine Neg (Neg); Leukocyte Esterase, Urine 2+ (Neg); Nitrite, Urine Neg (Neg); Protein, Urine Neg (Neg); Urobilinogen, Urine NORM (Normal); pH, Urine 6.5 (5.0-8.0)
[2022-02-19 17:39] LABS: Bacteria Mod /hpf; Squamous Epithelial Cells Mod /hpf (Few)
== END ==
LOC: LAB SHORT 14:50
PROVIDERS: Family Medicine
DX: R30.9 Painful micturition, unspecified (principal)
CPT/HCPCS: 81001

== ENCOUNTER → 2022-03-12 | Outpatient (CLI) | payer OTHER ==
[2022-03-12 12:45] LABS: Bacteria Rare /hpf; Red Blood Cells, Urine 0-2 /hpf (0-2); Squamous Epithelial Cells Many /hpf (Few)
== END | disposition home or self-care (01) ==
LOC: LAB SHORT 11:46
PROVIDERS: Family Medicine
DX: R35.0 Frequency of micturition (principal)
CPT/HCPCS: 81015; 87077; 87086; 87186

== ENCOUNTER 2022-05-24 19:20 | Emergency (ER) | payer OTHER ==
[~2022-05-24] VITALS: Ht 160 cm; Wt 72.6 kg
[~2022-05-24 19:20] MED LIST changes: +Norco 5-325 Ta1 EACH PO
[2022-05-24] MEDS ORDERED: CYCL10 PO (23:06)
== END 2022-05-24 23:38 | disposition home or self-care (01) ==
LOC: ER 19:20
DX: M54.50 Low back pain, unspecified (principal); I12.9 Hypertensive chronic kidney disease with stage 1 through stage 4 chronic kidney disease, or unspecified chronic kidney disease; N18.9 Chronic kidney disease, unspecified; J44.9 Chronic obstructive pulmonary disease, unspecified; I25.10 Atherosclerotic heart disease of native coronary artery without angina pectoris; I25.2 Old myocardial infarction; Z88.2 Allergy status to sulfonamides; Z88.8 Allergy status to other drugs, medicaments and biological substances; Z88.5 Allergy status to narcotic agent; Z79.899 Other long term (current) drug therapy; Z79.82 Long term (current) use of aspirin; Z79.02 Long term (current) use of antithrombotics/antiplatelets; W18.30XA Fall on same level, unspecified, initial encounter
CPT/HCPCS: A9270; J1885

== ENCOUNTER → 2022-06-04 | Outpatient (CLI) | payer OTHER | END | disposition home or self-care (01) | LOC: LAB 19:45 → LAB SHORT 19:45 | DX: R30.9 Painful micturition, unspecified (principal) | CPT/HCPCS: 87086 ==

== ENCOUNTER → 2022-06-04 | Outpatient (CLI) | payer OTHER ==
[~2022-06-04] MED LIST changes: +ACETAMINOPHEN500 M2 PO; +CALCIUM 500 MG1 EAC2 PO; +CEPH250A PO; +CITALOPRAM HBR20 M8 PO; +MIRALAX17 GM PO; +MULVITA PO; +PRAVASTATIN SOD40 MG PO; -Pravachol40 MG PO; +SODCHL1 PO; -THERA1 EACH PO; +TRAM50 PO; +Vitamin D1000 UNI1 PO
[2022-06-04 19:48] LABS: Source, Urine Clean Catch
[2022-06-04 19:49] LABS: Red Blood Cells, Urine 0-2 /hpf (0-2)
[2022-06-04 19:50] LABS: Bacteria Not Seen /hpf; Squamous Epithelial Cells Mod /hpf (Few)
== END | disposition home or self-care (01) ==
LOC: LAB 19:46 → LAB SHORT 19:46
PROVIDERS: Family Medicine
DX: R30.0 Dysuria (principal)
CPT/HCPCS: 81015

== ENCOUNTER 2022-06-14 12:25 | Observation (INO) | payer OTHER ==
[~2022-06-14] VITALS: Wt 71.2 kg
[~2022-06-14 12:25] MED LIST changes: -ACETAMINOPHEN500 M2 PO; -CALCIUM 500 MG1 EAC2 PO; -CEPH250A PO; -CITALOPRAM HBR20 M8 PO; -MIRALAX17 GM PO; -SODCHL1 PO; -TRAM50 PO; -Vitamin D1000 UNI1 PO
[2022-06-14] MEDS ORDERED: CEPH250A PO (12:57)
[2022-06-14] MEDS ORDERED: CITALOPRAM HBR20 M8 PO (12:58)
[2022-06-14 13:38] LABS: BASOPHILS ABSOLUTE AUTO 0.03 K/mm3 (0.00-0.23); BASOPHILS PERCENT AUTO 1 % (0-2); EOSINOPHILS ABSOLUTE AUTO 0.19 K/mm3 (0.00-0.68); EOSINOPHILS PERCENT AUTO 3 % (0-6); Hemoglobin 10.9 g/dL (11.5-16.0); IMMATURE GRAN ABSOLUTE AUTO 0.02 K/mm3 (0.00-0.10); IMMATURE GRAN PERCENT AUTO 0 % (0-1); LYMPHOCYTES ABSOLUTE AUTO 1.34 K/mm3 (0.84-5.20); LYMPHOCYTES PERCENT AUTO 23 % (21-46); MONOCYTES ABSOLUTE AUTO 0.69 K/mm3 (0.16-1.47); MONOCYTES PERCENT AUTO 12 % (4-13); Mean Corpuscular HGB 32.2 pg (26.0-34.0); Mean Corpuscular Volume 98 fL (80-100); Mean Platelet Volume 8.4 fL (9.1-12.4); NEUTROPHILS ABSOLUTE AUTO 3.46 K/mm3 (1.96-9.15); NEUTROPHILS PERCENT AUTO 61 % (41-73); Platelet Count 491 K/mm3 (150-400); RDW Coefficient Variation 12.4 % (11.7-14.2); RDW Standard Deviation 44.7 fL (35.1-46.3); Red Blood Cell Count 3.38 M/mm3 (3.80-5.20); White Blood Cell Count 5.73 K/mm3 (4.00-11.30)
[2022-06-14] MEDS ORDERED: TRAM50 PO (13:54)
--- NOTE | 2022-06-14 13:58 | NUR ---
DIRECT ADMIT- PT ARRIVED TO ROOM 325 A DIRECT ADMIT. PT A/OX4, 1 ASSIST INTO BED. DAUGHTER AT BEDSIDE. PT REPORTS PAIN AT 1/10 WHILE LYING BUT WHEN MOVING LEFT LOWER BACK PAIN INCREASES. REPORTS SHE FELL ON 05/23 AT THE GYM AND HAS DIFFICULT MOVING AND BEEN TO PAINFUL SINCE. SHE REPORTS SHE TAKES TYLENOL ARTHRITIS AND TRAMADOL NEEDED FOR PAIN WELL ICE. PT LIVES INDEP AT [facility]. LS CLEAR, ON RA. HRR. 1+ BLE EDEMA NOTED. PT ORIENTED TO ROOM AND CALL SYSTEM. CALL LIGHT IN REACH. DR FRIEDMAN CONSULTED.
[2022-06-14 14:09] LABS: Albumin, Blood 3.1 g/dL (3.4-5.0); Albumin/Globulin Ratio 0.8 (0.8-1.8); Bilirubin, Total 0.3 mg/dL (0.1-1.0); Bun/Creatinine Ratio 20.4 (12.0-20.0); Creatinine, Blood 1.08 mg/dL (0.40-1.00); Globulin, Blood 3.7 g/dL (2.2-4.0); Magnesium, Blood 2.3 mg/dL (1.6-2.4); Potassium, Blood 3.7 mmol/L (3.5-5.5); Total Protein, Blood 6.8 g/dL (6.4-8.2)
[2022-06-14] MEDS ORDERED: Vitamin D1000 UNI1 PO (15:48)
[2022-06-14] MEDS ORDERED: ACETAMINOPHEN500 M2 PO (15:48)
[2022-06-14] MEDS ORDERED: CALCIUM 500 MG1 EAC2 PO (15:49)
[2022-06-14 16:13] LABS: Source, Urine Straight Cath
[2022-06-14 17:19] LABS: Bilirubin, Urine Neg (Neg); Blood, Urine 1+ (Neg); Glucose Qualitative, Urine Neg (Neg); Ketones, Urine Neg (Neg); Leukocyte Esterase, Urine Neg (Neg); Nitrite, Urine Neg (Neg); Protein, Urine Neg (Neg); Urobilinogen, Urine NORM (Normal)
[2022-06-14 17:50] LABS: Color, Urine Pale Yellow (P-Yellow)
[2022-06-14 17:51] LABS: Appearance, Urine Hazy (Clear)
[2022-06-14 17:52] LABS: Bacteria Mod /hpf; Mucus Light (0-Heavy); Red Blood Cells, Urine 0-2 /hpf (0-2); Squamous Epithelial Cells Few /hpf (Few); Yeast/Fungi Urine Rare /hpf
--- NOTE | 2022-06-14 17:52 | NUR ---
SHIFT SUMMARY- DIRECT ADMIT THIS AFTERNOON. NO CHANGES SINCE ARRIVAL TO FLOOR. DR FRIEDMAN CONSULTED PT, PER DR FRIEDMAN WEIGHT BEARNING TOLERATED, PT/OT EVAL. NO ACUTE CHANGES.
--- NOTE | 2022-06-15 04:37 | NUR ---
PT A/OX4 VERY PLEASANT AND EDDI TO MAKE NEEDS KNOWN. PT 1ASSIST W/WALKER TO BATHROOM. PT REPORTED PAIN WAS WELL MANAGED WITH TYLENOL AND TRAMADOL GIVEN TOGETHER THIS IS WHAT SHE TAKES AT HOME. NO NEW C/O THIS SHIFT.
[2022-06-15 05:21] LABS: BASOPHILS ABSOLUTE AUTO 0.05 K/mm3 (0.00-0.23); BASOPHILS PERCENT AUTO 1 % (0-2); EOSINOPHILS ABSOLUTE AUTO 0.36 K/mm3 (0.00-0.68); EOSINOPHILS PERCENT AUTO 5 % (0-6); Hemoglobin 10.9 g/dL (11.5-16.0); IMMATURE GRAN ABSOLUTE AUTO 0.03 K/mm3 (0.00-0.10); IMMATURE GRAN PERCENT AUTO 0 % (0-1); LYMPHOCYTES ABSOLUTE AUTO 2.22 K/mm3 (0.84-5.20); LYMPHOCYTES PERCENT AUTO 32 % (21-46); MONOCYTES ABSOLUTE AUTO 0.91 K/mm3 (0.16-1.47); MONOCYTES PERCENT AUTO 13 % (4-13); Mean Corpuscular HGB 32.9 pg (26.0-34.0); Mean Corpuscular HGB Conc 34.1 g/dL (31.5-36.5); Mean Corpuscular Volume 97 fL (80-100); Mean Platelet Volume 8.5 fL (9.1-12.4); NEUTROPHILS ABSOLUTE AUTO 3.42 K/mm3 (1.96-9.15); NEUTROPHILS PERCENT AUTO 49 % (41-73); Platelet Count 489 K/mm3 (150-400); RDW Coefficient Variation 12.3 % (11.7-14.2); RDW Standard Deviation 43.1 fL (35.1-46.3); Red Blood Cell Count 3.31 M/mm3 (3.80-5.20); White Blood Cell Count 6.99 K/mm3 (4.00-11.30)
[2022-06-15 07:46] LABS: Percent Saturation 13.9 % (15.0-50.0)
[2022-06-15 07:55] LABS: Bun/Creatinine Ratio 20.9 (12.0-20.0); Calcium, Blood 8.8 mg/dL (8.5-10.1); Creatinine, Blood 1.1 mg/dL (0.40-1.00); Potassium, Blood 4.2 mmol/L (3.5-5.5)
--- NOTE | 2022-06-15 16:28 | NUR ---
SHIFT SUMMARY- PT A/OX3, PLEASANT AND COOPERATIVE. PT DENIES ANY PAIN AT REST AND REPORTS ONLY MILD PAIN WITH MOVEMENT/ AMBULATION TO LEFT PELVIS. PT UP TO BATHROOM WITH SBA AND FWW. PT ZEHRA COMPLETED AND RECOMMENDING HOME HEALTH. DAUGHTER CONCERNED ABOUT PT GOING HOME SHE LIVES ALONE AT [facility]. EXPLAINED TO DAUGHTER PT RECOMMENDATIONS OF HH AND OF RIGHT NOW THEY ARE NOT RECOMMENDING SNF. SPOKE WITH PT AND DAUGHTER ABOUT ASSISTANCE IN THE HOME. NO OTHER ACUTE CHANGES THIS SHIFT. POSSIBLE D/C HOME TOMORROW.
--- NOTE | 2022-06-16 03:23 | NUR ---
PT VERY PLEASANT AND EDDI TO MAKE NEEDS KNOWN, CALLS APPROPRIATELY. PT SBA TO BATHROOM USING WALKER. PT PAIN WELL MANAGED AT BEDTIME DID NOT NEED DOSE OF TRAMADOL. PT W/O NEW COMPLAINS THIS SHIFT.
[2022-06-16 05:52] LABS: BASOPHILS ABSOLUTE AUTO 0.05 K/mm3 (0.00-0.23); BASOPHILS PERCENT AUTO 1 % (0-2); EOSINOPHILS ABSOLUTE AUTO 0.32 K/mm3 (0.00-0.68); EOSINOPHILS PERCENT AUTO 6 % (0-6); Hemoglobin 10.9 g/dL (11.5-16.0); IMMATURE GRAN ABSOLUTE AUTO 0.01 K/mm3 (0.00-0.10); IMMATURE GRAN PERCENT AUTO 0 % (0-1); LYMPHOCYTES ABSOLUTE AUTO 2.15 K/mm3 (0.84-5.20); LYMPHOCYTES PERCENT AUTO 37 % (21-46); MONOCYTES ABSOLUTE AUTO 0.71 K/mm3 (0.16-1.47); MONOCYTES PERCENT AUTO 12 % (4-13); Mean Corpuscular HGB 32.6 pg (26.0-34.0); Mean Corpuscular HGB Conc 34.1 g/dL (31.5-36.5); Mean Corpuscular Volume 96 fL (80-100); Mean Platelet Volume 8.7 fL (9.1-12.4); NEUTROPHILS ABSOLUTE AUTO 2.58 K/mm3 (1.96-9.15); NEUTROPHILS PERCENT AUTO 44 % (41-73); Platelet Count 486 K/mm3 (150-400); RDW Coefficient Variation 12.3 % (11.7-14.2); RDW Standard Deviation 43.1 fL (35.1-46.3); Red Blood Cell Count 3.34 M/mm3 (3.80-5.20); White Blood Cell Count 5.82 K/mm3 (4.00-11.30)
[2022-06-16 06:13] LABS: Bun/Creatinine Ratio 27.9 (12.0-20.0); Calcium, Blood 8.9 mg/dL (8.5-10.1); Creatinine, Blood 0.97 mg/dL (0.40-1.00); Potassium, Blood 3.9 mmol/L (3.5-5.5)
[2022-06-16 14:50] LABS: Sodium, Blood 129 mmol/L (136-145)
--- NOTE | 2022-06-16 15:41 | NUR ---
Upon receiving a referral for spiritual care, I visit pt. Pt immediately tells me about her multiple falls and multiple fractures. She then talks about her deep loneliness and self-judgement. She explains about the of her spouse in 2013, the family that wants to help her and her reluctance to receive their help, and her dis-satisfaction with her social connections at [facility], She is very particular about her likes and dislikes yet is very pleasant. She shares about her [employer] Antonietta and her belief that God is the one holding her together through these challenging times. I explore sources of meaning and value, reinforce helpful attitudes and perspectives and provide therapeutic listening, gentle residential substance abuse counselor and prayer. Pt responds well and shows signs of catharsis and inner peace. I will cotnue to remain available.
[2022-06-16 17:21] LABS: Osmolality, Serum 272 mos/KG (275-300)
--- NOTE | 2022-06-16 17:30 | NUR ---
SHIFT SUMMARY PT HAD CT OF CHEST & NECK COMPLETED THIS SHIFT. AWAITING RESULTS. URINE COLLECTED AND SENT TO LAB. PT WORKED WITH PT/OT AND IS MOVING IN ROOM INDEPENDENTLY. NO OTHER ACUTE CHANGES IN ASSESSMENT AT THIS TIME. VS REVIEWED. PT UP IN ROOM. MIRALAX GIVEN TWICE TO HELP WITH CONSTIPATION. PT DENIES OTHER NEEDS AT THIS TIME.
[2022-06-17 10:07] LABS: Bun/Creatinine Ratio 18.2 (12.0-20.0); Calcium, Blood 9.3 mg/dL (8.5-10.1); Creatinine, Blood 1.1 mg/dL (0.40-1.00); Potassium, Blood 3.9 mmol/L (3.5-5.5)
[2022-06-17] MEDS ORDERED: MIRALAX17 GM PO (14:40)
[2022-06-17] MEDS ORDERED: DOCU100 PO (14:40)
[2022-06-17] MEDS ORDERED: SODCHL1 PO (14:41)
--- NOTE | 2022-06-17 15:28 | NUR ---
DISCHARGE PT DISCHARGED BACK HOME AFTER HAVING A LARGE BM. PT & DAUGHTER EDUCATED ON NEW MEDS AND FOLLOW UP INSTRUCTIONS. BOTH DENY NEED FOR FURTHER EDUATION PRIOR TO DC. IV REMOVED & INTACT. PT IND IN ROOM WITH WALKER PRIOR TO DC. ENCOURAGED PT TO BE USING HER WALKER AT HOME RATHER THAN HER CANE. NO OTHER ACUTE CHANGES IN ASSESSMENT PRIOR TO DC. PT WHEELED OUT BY THIS RN AND DRIVEN HOME BY DAUGHTER.
== END 2022-06-17 15:10 | disposition home health service (06) ==
LOC: MEDS 12:25
PROVIDERS: Internal Medicine; ADMIT Hospitalist
DX: S32.592A Other specified fracture of left pubis, initial encounter for closed fracture (principal); S32.019A Unspecified fracture of first lumbar vertebra, initial encounter for closed fracture; W19.XXXA Unspecified fall, initial encounter; E87.1 Hypo-osmolality and hyponatremia; C34.92 Malignant neoplasm of unspecified part of left bronchus or lung; I13.0 Hypertensive heart and chronic kidney disease with heart failure and stage 1 through stage 4 chronic kidney disease, or unspecified chronic kidney disease; I50.22 Chronic systolic (congestive) heart failure; N18.30 Chronic kidney disease, stage 3 unspecified; D50.9 Iron deficiency anemia, unspecified; E78.5 Hyperlipidemia, unspecified; I25.10 Atherosclerotic heart disease of native coronary artery without angina pectoris; Z95.5 Presence of coronary angioplasty implant and graft; Z88.5 Allergy status to narcotic agent; Z88.2 Allergy status to sulfonamides; Z88.8 Allergy status to other drugs, medicaments and biological substances; Z79.02 Long term (current) use of antithrombotics/antiplatelets; Z79.82 Long term (current) use of aspirin; Z79.899 Other long term (current) drug therapy
CPT/HCPCS: 36415; 70491; 71260; 80048; 80053; 81001; 82607; 82728; 82746; 83540; 83550; 83735; 83880; 83930; 83935; 84100; 84295; 84300; 85025; 87077; 87086; 87186; 94760; 94762; 96372; 97110; 97116; 97162; 97165; 97530; A9270; G0378; J1650; Q9967

== ENCOUNTER → 2022-07-05 | Outpatient (CLI) | payer OTHER ==
[~2022-07-05] MED LIST changes: +ACETAMINOPHEN500 M2 PO; +CALCIUM 500 MG1 EAC2 PO; +CEPH250A PO; +CITALOPRAM HBR20 M8 PO; +MIRALAX17 GM PO; +SODCHL1 PO; +TRAM50 PO; +Vitamin D1000 UNI1 PO
[2022-07-05 08:47] LABS: Bun/Creatinine Ratio 18.3 (12.0-20.0); Calcium, Blood 8.8 mg/dL (8.5-10.1); Creatinine, Blood 1.04 mg/dL (0.40-1.00); Potassium, Blood 4.1 mmol/L (3.5-5.5)
== END | disposition home or self-care (01) ==
LOC: LAB SHORT 08:29 → LAB 08:29
PROVIDERS: Family Medicine
DX: E87.1 Hypo-osmolality and hyponatremia (principal)
CPT/HCPCS: 80048

== ENCOUNTER → 2022-08-01 | Outpatient (CLI) | payer OTHER | END | disposition home or self-care (01) | LOC: LAB 17:38 → LAB SHORT 17:38 | DX: N39.0 Urinary tract infection, site not specified (principal) | CPT/HCPCS: 87077; 87086; 87186 ==

== ENCOUNTER → 2022-09-15 | Outpatient (CLI) | payer OTHER | LOC: LAB 10:30 → LAB SHORT 10:30 | DX: N39.0 Urinary tract infection, site not specified (principal) | CPT/HCPCS: 87086 ==

== ENCOUNTER 2023-06-08 16:29 | Emergency (ER) | payer OTHER ==
[~2023-06-08] VITALS: Ht 157.5 cm; Wt 69.0 kg
[2023-06-08 17:26] LABS: BASOPHILS ABSOLUTE AUTO 0.03 K/mm3 (0.00-0.23); BASOPHILS PERCENT AUTO 1 % (0-2); EOSINOPHILS ABSOLUTE AUTO 0.13 K/mm3 (0.00-0.68); EOSINOPHILS PERCENT AUTO 3 % (0-6); Hematocrit 32.5 % (33.0-51.0); Hemoglobin 11.2 g/dL (11.5-16.0); IMMATURE GRAN ABSOLUTE AUTO 0.01 K/mm3 (0.00-0.10); IMMATURE GRAN PERCENT AUTO 0 % (0-1); LYMPHOCYTES ABSOLUTE AUTO 1.76 K/mm3 (0.84-5.20); LYMPHOCYTES PERCENT AUTO 36 % (21-46); MONOCYTES ABSOLUTE AUTO 0.95 K/mm3 (0.16-1.47); MONOCYTES PERCENT AUTO 19 % (4-13); Mean Corpuscular HGB 32.7 pg (26.0-34.0); Mean Corpuscular HGB Conc 34.5 g/dL (31.5-36.5); Mean Corpuscular Volume 95 fL (80-100); Mean Platelet Volume 8.7 fL (9.1-12.4); NEUTROPHILS ABSOLUTE AUTO 2.04 K/mm3 (1.96-9.15); NEUTROPHILS PERCENT AUTO 42 % (41-73); Platelet Count 264 K/mm3 (150-400); RDW Coefficient Variation 13.2 % (11.7-14.2); RDW Standard Deviation 45.9 fL (35.1-46.3); Red Blood Cell Count 3.43 M/mm3 (3.80-5.20); White Blood Cell Count 4.92 K/mm3 (4.00-11.30)
[2023-06-08 17:53] LABS: Albumin, Blood 3.3 g/dL (3.4-5.0); Albumin/Globulin Ratio 1.1 (0.8-1.8); Bilirubin, Total 0.5 mg/dL (0.1-1.0); Bun/Creatinine Ratio 15.7 (12.0-20.0); Calcium, Blood 8.9 mg/dL (8.5-10.1); Creatinine, Blood 0.89 mg/dL (0.40-1.00); Globulin, Blood 3.1 g/dL (2.2-4.0); Potassium, Blood 3.6 mmol/L (3.5-5.5); Total Protein, Blood 6.4 g/dL (6.4-8.2)
[2023-06-08 19:06] LABS: Source, Urine Clean Catch
[2023-06-08 19:11] LABS: Appearance, Urine Clear (Clear); Bilirubin, Urine Neg (Neg); Blood, Urine 1+ (Neg); Glucose Qualitative, Urine Neg (Neg); Ketones, Urine Neg (Neg); Leukocyte Esterase, Urine 2+ (Neg); Nitrite, Urine Neg (Neg); Protein, Urine Neg (Neg); Urobilinogen, Urine NORM (Normal); pH, Urine 6.5 (5.0-8.0)
[2023-06-08 19:34] LABS: Color, Urine Pale Yellow (P-Yellow)
[2023-06-08 19:35] LABS: Bacteria Few /hpf; Red Blood Cells, Urine 0-2 /hpf (0-2); Squamous Epithelial Cells Rare /hpf (Few)
[2023-06-08 21:09] VITALS: BP 133/69
== END 2023-06-08 20:35 | disposition home or self-care (01) ==
LOC: ER 16:29
PROVIDERS: Student in an Organized Health Care Education/Training Program
DX: S00.03XA Contusion of scalp, initial encounter (principal); M54.2 Cervicalgia; E87.1 Hypo-osmolality and hyponatremia; W10.8XXA Fall (on) (from) other stairs and steps, initial encounter; Z88.2 Allergy status to sulfonamides; Z88.5 Allergy status to narcotic agent; Z88.8 Allergy status to other drugs, medicaments and biological substances; Z79.899 Other long term (current) drug therapy; Z79.82 Long term (current) use of aspirin; I12.9 Hypertensive chronic kidney disease with stage 1 through stage 4 chronic kidney disease, or unspecified chronic kidney disease; N18.9 Chronic kidney disease, unspecified; J44.9 Chronic obstructive pulmonary disease, unspecified; I25.10 Atherosclerotic heart disease of native coronary artery without angina pectoris; I25.2 Old myocardial infarction
CPT/HCPCS: 70450; 72125; 73120; 80053; 81001; 83735; 83880; 84484; 85025; 87086; 93005; 93010; 99284-25

== ENCOUNTER 2023-06-15 15:52 | Emergency (ER) | payer OTHER ==
[~2023-06-15] VITALS: Ht 160 cm; Wt 69.0 kg
[2023-06-15 22:24] VITALS: BP 143/69
== END 2023-06-15 22:20 | disposition home or self-care (01) ==
LOC: ER 15:52
DX: S06.0X0A Concussion without loss of consciousness, initial encounter (principal); I12.9 Hypertensive chronic kidney disease with stage 1 through stage 4 chronic kidney disease, or unspecified chronic kidney disease; N18.9 Chronic kidney disease, unspecified; I25.2 Old myocardial infarction; I25.10 Atherosclerotic heart disease of native coronary artery without angina pectoris; J44.9 Chronic obstructive pulmonary disease, unspecified; I48.91 Unspecified atrial fibrillation; W18.30XA Fall on same level, unspecified, initial encounter; Z79.82 Long term (current) use of aspirin; Z79.899 Other long term (current) drug therapy; Z88.2 Allergy status to sulfonamides; Z88.5 Allergy status to narcotic agent; Z86.73 Personal history of transient ischemic attack (TIA), and cerebral infarction without residual deficits; Z95.1 Presence of aortocoronary bypass graft
CPT/HCPCS: 70450; 93005; 93010; 99284-25

== ENCOUNTER → 2023-08-02 | Outpatient (CLI) | payer OTHER ==
[2023-08-02 15:53] LABS: BASOPHILS ABSOLUTE AUTO 0.05 K/mm3 (0.00-0.23); BASOPHILS PERCENT AUTO 1 % (0-2); EOSINOPHILS PERCENT AUTO 0 % (0-6); Hematocrit 33.5 % (33.0-51.0); Hemoglobin 11.4 g/dL (11.5-16.0); IMMATURE GRAN ABSOLUTE AUTO 0.01 K/mm3 (0.00-0.10); IMMATURE GRAN PERCENT AUTO 0 % (0-1); LYMPHOCYTES ABSOLUTE AUTO 2.03 K/mm3 (0.84-5.20); LYMPHOCYTES PERCENT AUTO 45 % (21-46); MONOCYTES ABSOLUTE AUTO 0.66 K/mm3 (0.16-1.47); MONOCYTES PERCENT AUTO 15 % (4-13); Mean Corpuscular HGB 32.9 pg (26.0-34.0); Mean Corpuscular Volume 97 fL (80-100); Mean Platelet Volume 8.9 fL (9.1-12.4); NEUTROPHILS ABSOLUTE AUTO 1.75 K/mm3 (1.96-9.15); NEUTROPHILS PERCENT AUTO 39 % (41-73); Platelet Count 328 K/mm3 (150-400); RDW Coefficient Variation 12.8 % (11.7-14.2); RDW Standard Deviation 45.5 fL (35.1-46.3); Red Blood Cell Count 3.46 M/mm3 (3.80-5.20)
[2023-08-02 16:12] LABS: Albumin, Blood 3.3 g/dL (3.4-5.0); Bilirubin, Total 0.2 mg/dL (0.1-1.0); Bun/Creatinine Ratio 15.4 (12.0-20.0); Calcium, Blood 8.3 mg/dL (8.5-10.1); Creatinine, Blood 0.97 mg/dL (0.40-1.00); Globulin, Blood 3.2 g/dL (2.2-4.0); Potassium, Blood 3.7 mmol/L (3.5-5.5); Total Protein, Blood 6.5 g/dL (6.4-8.2)
== END | disposition home or self-care (01) ==
LOC: LAB SHORT 15:05 → LAB 15:05
PROVIDERS: Internal Medicine Hematology & Oncology
DX: C34.90 Malignant neoplasm of unspecified part of unspecified bronchus or lung (principal)
CPT/HCPCS: 80053; 85025

== ENCOUNTER → 2023-09-12 | Outpatient (CLI) | payer OTHER ==
[2023-09-12 19:19] LABS: BASOPHILS ABSOLUTE AUTO 0.04 K/mm3 (0.00-0.23); BASOPHILS PERCENT AUTO 1 % (0-2); EOSINOPHILS PERCENT AUTO 2 % (0-6); Hematocrit 34.5 % (33.0-51.0); Hemoglobin 11.8 g/dL (11.5-16.0); IMMATURE GRAN ABSOLUTE AUTO 0.01 K/mm3 (0.00-0.10); IMMATURE GRAN PERCENT AUTO 0 % (0-1); LYMPHOCYTES ABSOLUTE AUTO 2.54 K/mm3 (0.84-5.20); LYMPHOCYTES PERCENT AUTO 42 % (21-46); MONOCYTES ABSOLUTE AUTO 0.89 K/mm3 (0.16-1.47); MONOCYTES PERCENT AUTO 15 % (4-13); Mean Corpuscular HGB 32.6 pg (26.0-34.0); Mean Corpuscular HGB Conc 34.2 g/dL (31.5-36.5); Mean Corpuscular Volume 95 fL (80-100); NEUTROPHILS ABSOLUTE AUTO 2.43 K/mm3 (1.96-9.15); NEUTROPHILS PERCENT AUTO 40 % (41-73); Platelet Count 375 K/mm3 (150-400); RDW Coefficient Variation 12.4 % (11.7-14.2); RDW Standard Deviation 43.8 fL (35.1-46.3); Red Blood Cell Count 3.62 M/mm3 (3.80-5.20); White Blood Cell Count 6.01 K/mm3 (4.00-11.30)
[2023-09-12 19:41] LABS: Albumin, Blood 3.4 g/dL (3.4-5.0); Albumin/Globulin Ratio 0.9 (0.8-1.8); Bilirubin, Total 0.2 mg/dL (0.1-1.0); Creatinine, Blood 1.2 mg/dL (0.40-1.00); Globulin, Blood 3.9 g/dL (2.2-4.0); Potassium, Blood 3.8 mmol/L (3.5-5.5); Total Protein, Blood 7.3 g/dL (6.4-8.2)
== END | disposition home or self-care (01) ==
LOC: LAB 18:45 → LAB SHORT 18:45
PROVIDERS: Internal Medicine Hematology & Oncology
DX: C34.90 Malignant neoplasm of unspecified part of unspecified bronchus or lung (principal)
CPT/HCPCS: 80053; 85025

== ENCOUNTER → 2023-11-24 | Outpatient (CLI) | payer OTHER ==
[~2023-11-24] MED LIST changes: +BIOTIN PLUS 5,1 EACH PO; +CRANBERRY CONCENTRAT PO; +ELIQUIS5 M2 PO; +KLOR-CON 1010 ME9 PO; +MULTI-VITAMIN1 EAC2 PO; +PROAIR DIGIHAL90 MCG; +Pravastatin Sod40 MG PO; +SPIRIVA RESPIMAT4 G3 INH; +Vitamin B-12100 MCG PO
[2023-11-24 18:32] LABS: BASOPHILS ABSOLUTE AUTO 0.04 K/mm3 (0.00-0.23); BASOPHILS PERCENT AUTO 1 % (0-2); EOSINOPHILS ABSOLUTE AUTO 0.16 K/mm3 (0.00-0.68); EOSINOPHILS PERCENT AUTO 2 % (0-6); Hematocrit 36.9 % (33.0-51.0); Hemoglobin 12.4 g/dL (11.5-16.0); IMMATURE GRAN ABSOLUTE AUTO 0.03 K/mm3 (0.00-0.10); IMMATURE GRAN PERCENT AUTO 0 % (0-1); LYMPHOCYTES ABSOLUTE AUTO 2.67 K/mm3 (0.84-5.20); LYMPHOCYTES PERCENT AUTO 34 % (21-46); MONOCYTES ABSOLUTE AUTO 0.84 K/mm3 (0.16-1.47); MONOCYTES PERCENT AUTO 11 % (4-13); Mean Corpuscular HGB 32.2 pg (26.0-34.0); Mean Corpuscular HGB Conc 33.6 g/dL (31.5-36.5); Mean Corpuscular Volume 96 fL (80-100); Mean Platelet Volume 9.1 fL (9.1-12.4); NEUTROPHILS ABSOLUTE AUTO 4.23 K/mm3 (1.96-9.15); NEUTROPHILS PERCENT AUTO 53 % (41-73); Platelet Count 399 K/mm3 (150-400); RDW Coefficient Variation 12.9 % (11.7-14.2); RDW Standard Deviation 45.1 fL (35.1-46.3); Red Blood Cell Count 3.85 M/mm3 (3.80-5.20); White Blood Cell Count 7.97 K/mm3 (4.00-11.30)
[2023-11-24 18:59] LABS: Bun/Creatinine Ratio 18.1 (12.0-20.0); Calcium, Blood 9.2 mg/dL (8.5-10.1); Creatinine, Blood 1.16 mg/dL (0.40-1.00); Potassium, Blood 4.1 mmol/L (3.5-5.5)
== END | disposition home or self-care (01) ==
LOC: LAB SHORT 18:00 → LAB 18:00
PROVIDERS: Otolaryngology
DX: Z01.812 Encounter for preprocedural laboratory examination (principal); J38.00 Paralysis of vocal cords and larynx, unspecified
CPT/HCPCS: 36415; 80048; 85025

== ENCOUNTER 2023-11-25 11:15 | Day surgery (SDC) | payer OTHER ==
[~2023-11-25] VITALS: Ht 160 cm; Wt 66.6 kg
[~2023-11-25 11:15] MED LIST changes: -ELIQUIS5 M2 PO
[2023-11-25] MEDS ORDERED: ELIQUIS5 M2 PO (11:40)
--- NOTE | 2023-11-25 12:37 | NUR ---
11/25/23 8247 Shannen Chandler MD VU SPEAKING WITH PT REGARDING THE RISKS OF SURGERY, SON CALLED TO COME BACK IN SO SHE CAN DISCUSS WITH BOTH OF THEM HER THOUGHTS. SON IS 15MIN OUT.
--- NOTE | 2023-11-25 13:39 | NUR ---
11/25/23 1339 Deepali Marrero LIDOCAINE 2% 1:100,000 DILUTED W/ NORMAL SALINE 1:1 TO MAKE LIDOCAINE 1% 1:200,[facility].
[2023-11-25 15:53] VITALS: BP 132/72
== END 2023-11-25 15:51 | disposition home or self-care (01) ==
LOC: ORSCSDS 11:15
PROVIDERS: Otolaryngology
PROC: 07B20ZX Excision of Left Neck Lymphatic, Open Approach, Diagnostic (ICD-10-PCS; principal; 2023-11-25 12:15)
PROC: 07BD0ZX Excision of Aortic Lymphatic, Open Approach, Diagnostic (ICD-10-PCS; principal; 2023-11-25 12:15)
DX: C79.89 Secondary malignant neoplasm of other specified sites (principal); Z85.118 Personal history of other malignant neoplasm of bronchus and lung; J38.00 Paralysis of vocal cords and larynx, unspecified; I25.10 Atherosclerotic heart disease of native coronary artery without angina pectoris; I10 Essential (primary) hypertension; I25.2 Old myocardial infarction; E78.5 Hyperlipidemia, unspecified; Z79.899 Other long term (current) drug therapy; Z79.01 Long term (current) use of anticoagulants; F32.A Depression, unspecified; J44.9 Chronic obstructive pulmonary disease, unspecified
CPT/HCPCS: 88305; 88341; 88342; A9270; J1100; J2371; J2405; J2704; J3010; J7120